=== PATIENT | female | born 1945 | race Caucasian/White ===

== ENCOUNTER 2019-04-09 13:26 | Outpatient (CLI) | payer MEDICARE, SELFPAY ==
[2019-04-09 17:23] LABS: Basophils Absolute Auto 0.1 K/mm3 (0.0-0.1); Basophils Percent Auto 0.8 % (0.2-1.2); Eosinophils Absolute Auto 0.6 K/mm3 (0-0.3); Eosinophils Percent Auto 4.8 % (0-4.4); Hematocrit 47.7 % (37.0-47.0); Hemoglobin 14.8 g/dL (12.0-15.0); Immature Granulocyte Absolute 0.05 K/mm3 (0.00-0.031); Immature Granulocyte Percent A 0.4 % (0-0.5); Lymphocytes Absolute Auto 3.46 K/mm3 (0.9-3.2); Lymphocytes Percent Auto 29.8 % (18.3-44.2); Mean Corpuscular Hemoglobin 29.5 pg (26-34); Mean Platelet Volume 12.2 fl (7.4-10.4); Monocytes Absolute Auto 0.8 K/mm3 (0.1-0.6); Monocytes Percent Auto 7.1 % (2.6-8.5); Neutrophils Absolute Auto 6.6 K/mm3 (1.3-6.7); Neutrophils Percent Auto 57.1 % (45.5-73.1); Platelet Count Result 304 k/mm3 (150-375); Red Blood Count 5.02 M/mm3 (4.2-5.4); Red Cell Distribution Width 15.3 % (11.5-14.5); White Blood Count 11.6 K/mm3 (4.5-10.0)
[2019-04-09 17:27] LABS: Add Urine Microscopic? YES; Appearance Urine Clear (Clear); Bilirubin Urine Negative (Negative); Blood Urine 1+ (Negative); Color Urine Yellow (Yellow); Glucose Urine UA Negative (Negative); Ketones Urine Negative (Negative); Leukocyte Esterase Ur Negative LEU/UL (Negative); Mucus Urine Rare /lpf; Nitrate Urine Negative (Negative); Protein Urine Negative (Negative); RBC Urine 0-2 /hpf (0-2); Specific Grav Ur 1.012 (1.001-1.035); Squamous Epithelial Cell Urine Rare /hpf (Few); Urobilinogen Urine Negative mg/dL (<2.0); WBC Urine 0-3 /hpf
[2019-04-09 17:43] LABS: LDL Cholesterol Direct 250 mg/dL
[2019-04-09 17:51] LABS: Vitamin D 25 Hydroxy 17.5 ng/mL
[2019-04-09 18:06] LABS: Alanine Aminotransferase 21 U/L (4-35); Albumin Level 4.6 g/dL (3.5-5.1); Alkaline Phosphatase 178 U/L (38-126); Aspartate Amino Transferase 23 U/L (14-36); Bilirubin,Total 0.5 mg/dL (0.2-1.3); Blood Urea Nitrogen 9 mg/dL (7-17); CRP 1.3 mg/dL (<1.0); Calcium 10.1 mg/dL (8.4-10.2); Carbon Dioxide 23 mmol/L (22-30); Chloride 102 mmol/L (98-107); Estimated Glomerular Filt Rate 49; Glucose 107 mg/dL (65-105); HDL Direct 62 mg/dL; Potassium 4.2 mmol/L (3.4-5.0); Sodium 140 mmol/L (137-145); Triglycerides 187 mg/dL (<150)
[2019-04-09 18:24] LABS: Cholesterol 339 mg/dL (0-200)
[2019-04-09 18:37] LABS: Folic Acid 7.4 ng/mL (2.76->20)
[2019-04-12 19:54] LABS: C-Peptide 2.24 ng/mL (0.80-3.85)
== END 2019-04-09 13:27 | disposition home or self-care (01) ==
LOC: ANHBWCIMG 13:28
PROVIDERS: PCP Family Medicine; Visit Provider Family Medicine
DX: E53.8 Deficiency of other specified B group vitamins (principal); E78.2 Mixed hyperlipidemia; Z72.0 Tobacco use; Z78.0 Asymptomatic menopausal state; Z79.899 Other long term (current) drug therapy
CPT/HCPCS: 36415; 80053; 80061; 81001; 82306; 82607; 82746; 84443; 84681; 85025; 86140

== ENCOUNTER → 2020-07-11 09:21 | Outpatient (CLI) | payer MEDICARE, SELFPAY ==
--- NOTE | ~2020-07-11 | CT_ITS ---
EXAMINATION: CT sinus wo con DATE: 07/11/2020 09:45 INDICATION: Chronic sinusitis. Dysfunction of eustachian tube. TECHNIQUE: Computed tomography (CT) of the paranasal sinuses was performed without intravenous contra st. Automated exposure control and iterative reconstruction technique were employed. The dose-length product was 258.77 mGy-cm. COMPARISON: None FINDINGS: The frontal and sphenoid sinuses are clear. There is mild mucosal thickening in the left an terior ethmoid sinuses and bilateral maxillary sinuses. The nasal septum is at midline. There is conc flower bullosa involving the right middle turbinate. Left middle turbinate is paradoxical. The ostiomeata l units are patent. There are likely changes of ocular lens replacement surgeries. The nasopharynx is unremarkable. There is a small right mastoid effusion. IMPRESSION: 1. Mild mucosal thickening in the paranasal sinuses. 2. Small right mastoid effusion. Reviewed, dictated and finalized at location A.
== END ==
PROVIDERS: Visit Provider Family Medicine
DX: H69.80 Other specified disorders of Eustachian tube, unspecified ear (principal)
CPT/HCPCS: 70486

== ENCOUNTER 2020-07-15 12:45 | Outpatient (CLI) | payer MEDICARE, SELFPAY ==
--- NOTE | ~2020-07-15 | CT_ITS ---
EXAMINATION: CT diagnostic chest wo con EXAM DATE: 07/15/2020 13:31 INDICATION: Chronic cough, SOB, nicotine dependence. TECHNIQUE: Spiral CT of the chest without contrast. Axial, coronal and sagittal images of the chest were reviewed. Coronal maximum intensity pixel images of chest reviewed. The dose-length product ( DLP) for this examination was 142.75 mGy-cm. The exposure was tailored according to patient size (au to mA exposure control), and iterative reconstruction (ASIR) was used as additional dose reduction te chnique. Comparison is made to prior examination from 04/11/2018. 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 Moderate emphysema and mild hyperinflation. Mild bronchiectasis. There are no pleural or pericardial effusions. Tracheobronchial tree is patent. There is no mediastinal, hilar or axillary lymphadeno esteban. There is no pneumothorax. Heart normal in size. There is moderate coronary arterial calc ification, arterial sclerosis. Upper abdomen is unremarkable. There is thoracic spondylosis withou t osteoblastic or osteolytic lesions identified. IMPRESSION: 1. Moderate amount of NSIP interstitial lung disease unchanged. 2. Moderate emphysema. Mild hyperinflation. 3. No acute findings. Reviewed, dictated and finalized at location A.
--- NOTE | ~2020-07-15 | US_ITS ---
EXAMINATION: US carotid duplex BI DATE: 07/15/2020 13:22 INDICATION: Peripheral vascular disease. Palpitations. TECHNIQUE: Grayscale, color Doppler, and pulsed Doppler images of the cervical carotid arteries were obtained. The degree of vessel stenosis is placed in one of the following categories: normal, <50%, 5 0-69%, >=70% but less than near-occlusion, near-occlusion, or total occlusion. Note that percent sten osis relative to normal distal artery lumen diameter is indirectly measured from velocity measurement s as described by Anjum, et al. Radiology 2003; 229:340-346. Notes: Normal: Peak systolic velocity <125 centimeters/sec and no plaque <50%. Peak systolic velocity <125 ( EDV <40; ICA/CCA PSV ratio <2.0; used these factors only a tandem lesions or low cardiac output or co ntralateral disease) 50-69 %: PSV 125-230 (EDV 40-100; ratio 2-4) >= 70% but less than near occlusion: PSV greater than 230 (EDV > 100; ratio> 4.0) Near Occlusion: PSV that is variable; markedly narrowed lumen Occlusion: Absent flow on color/spectral Doppler and no lumen on conklin scale. COMPARISON: None. FINDINGS: RIGHT: The right common carotid artery (CCA) peak systolic velocity (PSV) is 77 cm/s. The right internal car otid artery (ICA) PSV is 83 cm/s. The right ICA end-diastolic velocity (EDV) is 21 cm/s. The right IC A/CCA PSV ratio is 1.1. The external carotid artery (ECA) PSV is 76 cm/s. There is antegrade flow in the right vertebral artery. LEFT: The left CCA PSV is 73 cm/s. The left ICA PSV is 94 cm/s. The left ICA EDV is 22 cm/s. The left ICA/C CA PSV ratio is 1.3. The ECA PSV is 98 cm/s. There is antegrade flow in the left vertebral artery. IMPRESSION: 1. Less than 50% stenosis in the right internal carotid artery by sonographic criteria. 2. Less than 50% stenosis in the left internal carotid artery by sonographic criteria. Reviewed, dictated and finalized at location B. IMPRESSION: 1. Less than 50% stenosis in the right internal carotid artery by sonographic c riteria. 2. Less than 50% stenosis in the left internal carotid artery by sonographic cr elaineia.
== END 2020-07-15 12:46 | disposition home or self-care (01) ==
LOC: ANHIMG 12:48
PROVIDERS: PCP Family Medicine; Visit Provider Family Medicine
DX: H69.80 Other specified disorders of Eustachian tube, unspecified ear (principal); Z91.89 Other specified personal risk factors, not elsewhere classified; F17.200 Nicotine dependence, unspecified, uncomplicated; J32.9 Chronic sinusitis, unspecified; J43.9 Emphysema, unspecified; I65.23 Occlusion and stenosis of bilateral carotid arteries
CPT/HCPCS: 71250; 93880

== ENCOUNTER 2020-07-17 10:47 | Outpatient (CLI) | payer MEDICARE, SELFPAY | END 2020-07-17 10:48 | disposition home or self-care (01) | PROVIDERS: PCP Family Medicine; Visit Provider Family Medicine | DX: H69.80 Other specified disorders of Eustachian tube, unspecified ear (principal); R42 Dizziness and giddiness | CPT/HCPCS: 92557; 92567 ==

== ENCOUNTER 2020-09-09 14:14 | Outpatient (CLI) | payer MEDICARE, SELFPAY ==
--- NOTE | ~2020-09-09 | MR_ITS ---
EXAMINATION: MR lumbar spine wo/w con DATE: 09/09/2020 15:43 INDICATION: Low back pain. Left leg pain. TECHNIQUE: Magnetic resonance imaging (MRI) of the lumbar spine was performed without and with 10 mL MultiHance intravenous contrast. Sequences included sagittal T2-weighted FSE, sagittal T2-weighted FS FSE, and sagittal and axial T1-weighted FSE. Postcontrast sequences included axial T2-weighted FSE a nd axial and sagittal T1-weighted FS FSE. COMPARISON: None FINDINGS: There is 3 mm anterolisthesis of L4 on L5. Vertebral body heights are normal. There is mild ly decreased disc height at L2-L3, L4-L5, and L5-S1. The distal spinal cord signal intensity is goldie l. The conus medullaris is at L1. The following disc levels are specifically discussed: L1-L2: The disc does not extend beyond the endplate margin. There is no facet joint osteoarthritis. T here is no neural foraminal stenosis. There is no central canal stenosis. L2-L3: The disc is bulging with superimposed right foraminal extrusion. There is mild bilateral facet joint osteoarthritis. There is mild bilateral neural foraminal stenosis. There is mild central canal stenosis. L3-L4: The disc is bulging and has an annular fissure. There is severe right and moderate left facet joint osteoarthritis. There is mild bilateral neural foraminal stenosis. There is mild central canal stenosis. L4-L5: The disc is bulging. There is severe bilateral facet joint osteoarthritis. There is mild later al neural foraminal stenosis. There is mild central canal stenosis. L5-S1: There is a left central extrusion with mass effect on left S1 nerve root in left lateral reces s. There is severe bilateral facet joint osteoarthritis. There is mild bilateral neural foraminal gino nosis. There is mild central canal stenosis. There is severe stenosis in left lateral recess. IMPRESSION: 1. Extrusion at L5-S1 with mass effect on left S1 nerve root. Otherwise mild lumbar spondylosis. Reviewed, dictated and finalized at location A. IMPRESSION: 1. Extrusion at L5-S1 with mass effect on left S1 nerve root. Otherwise mild jaspreet mbar spondylosis.
[2020-09-09 15:14] LABS: Estimated Glomerular Filt Rate 49
== END 2020-09-09 14:15 | disposition home or self-care (01) ==
LOC: ANHIMG 14:15
PROVIDERS: PCP Family Medicine; Visit Provider Family Medicine
DX: M54.16 Radiculopathy, lumbar region (principal); M47.816 Spondylosis without myelopathy or radiculopathy, lumbar region; M51.27 Other intervertebral disc displacement, lumbosacral region
CPT/HCPCS: 72158; A9577

== ENCOUNTER 2020-10-06 10:40 | Outpatient (CLI) | payer MEDICARE, SELFPAY ==
[2020-10-06 21:37] LABS: Hemoglobin A1C 5.5 % (<5.7)
== END 2020-10-06 10:41 | disposition home or self-care (01) ==
PROVIDERS: PCP Family Medicine; Visit Provider Family Medicine
DX: R73.09 Other abnormal glucose (principal); R79.89 Other specified abnormal findings of blood chemistry
CPT/HCPCS: 36415; 83036

== ENCOUNTER 2020-10-22 14:44 | Outpatient (CLI) | payer MEDICARE, SELFPAY ==
--- NOTE | ~2020-10-22 | XR_ITS ---
XR hip LT min 2V DATE: 10/22/2020 14:59 INDICATION: Fall one year ago. Worsening left hip pain. TECHNIQUE: AP, lateral views COMPARISON: None FINDINGS: No fracture, dislocation, avascular necrosis or bone destruction is detected. Mild left hip osteoarthritis. Calcified uterine fibroid. Common iliac and femoral artery calcifications. IMPRESSION: Mild left hip osteoarthritis Reviewed, dictated and finalized at location A.
== END 2020-10-22 14:45 | disposition home or self-care (01) ==
LOC: ANHBWCIMG 14:46
PROVIDERS: PCP Family Medicine; Visit Provider Family Medicine
DX: M17.12 Unilateral primary osteoarthritis, left knee (principal)
CPT/HCPCS: 73502

== ENCOUNTER → 2021-02-13 03:30 | Outpatient (CLI) | payer MEDICARE, SELFPAY ==
[2021-02-13 22:11] LABS: SARS-CoV-2 RNA PCR Negative
== END ==
PROVIDERS: PCP Family Medicine; Visit Provider Family Medicine
DX: J06.9 Acute upper respiratory infection, unspecified (principal); Z20.822 Contact with and (suspected) exposure to COVID-19
CPT/HCPCS: C9803; U0003; U0005

== ENCOUNTER 2021-04-08 11:16 | Outpatient (CLI) | payer MEDICARE, SELFPAY ==
[2021-04-08 18:55] LABS: Hematocrit 49.3 % (37.0-47.0); Hemoglobin 15.1 g/dL (12.0-15.0); Mean Corpuscular HGB Conc 30.6 g/dl (32-36); Mean Corpuscular Hemoglobin 29.5 pg (26-34); Mean Corpuscular Volume 96.5 fl (80-100); Mean Platelet Volume 12.1 fl (7.4-10.4); Platelet Count Result 285 k/mm3 (150-375); Red Blood Count 5.11 M/mm3 (4.2-5.4); Red Cell Distribution Width 14.7 % (11.5-14.5); White Blood Count 8.8 K/mm3 (4.5-10.0)
[2021-04-08 19:01] LABS: Alanine Aminotransferase 16 U/L (4-35); Albumin Level 4.7 g/dL (3.5-5.1); Alkaline Phosphatase 138 U/L (38-126); Anion Gap 11 mmol/L (8-16); Aspartate Amino Transferase 23 U/L (14-36); Bilirubin,Total 0.6 mg/dL (0.2-1.3); Blood Urea Nitrogen 12 mg/dL (7-17); Calcium 10.7 mg/dL (8.4-10.2); Carbon Dioxide 25 mmol/L (22-30); Chloride 103 mmol/L (98-107); Cholesterol 239 mg/dL (0-200); Estimated Glomerular Filt Rate 49; Glucose 117 mg/dL (65-110); HDL Direct 71 mg/dL; Potassium 4.6 mmol/L (3.4-5.0); Sodium 139 mmol/L (137-145); Triglycerides 155 mg/dL (<150)
[2021-04-08 19:12] LABS: LDL Cholesterol Direct 132 mg/dL
[2021-04-08 19:22] LABS: Vitamin D 25 Hydroxy 49.6 ng/mL
== END 2021-04-08 11:17 | disposition home or self-care (01) ==
PROVIDERS: PCP Family Medicine; Visit Provider Family Medicine
DX: R53.83 Other fatigue (principal); M54.16 Radiculopathy, lumbar region; E55.9 Vitamin D deficiency, unspecified; R79.89 Other specified abnormal findings of blood chemistry
CPT/HCPCS: 36415; 80053; 80061; 82306; 85027

== ENCOUNTER 2021-04-28 14:52 | Outpatient (CLI) | payer MEDICARE, SELFPAY ==
--- NOTE | ~2021-04-28 | CT_ITS ---
EXAMINATION: CT chest high resolution wo ma DATE: 04/28/2021 15:03 INDICATION: Nonspecific interstitial pneumonitis TECHNIQUE: Computed tomography (CT) of the chest was performed without intravenous contrast. The dose -length product was 127.79 mGy-cm. Automated exposure control and iterative reconstruction technique were employed. COMPARISON: CT dated 07/15/2020 FINDINGS: There is mild atherosclerosis of the aorta and coronary arteries. No evidence for aneurysm. There is precarinal lymphadenopathy measuring 11 mm, likely reactive no significant pleural or peric ardial effusion. The upper abdomen is unremarkable. There is emphysema. There are stable coarse inter stitial changes bilaterally with subpleural bands and interlobular septal thickening, consistent with chronic interstitial lung disease no endobronchial lesions. There is a stable 5 mm nodule right midd le lobe, likely benign. No new pulmonary nodules or masses. There is mild thoracic spondylosis. IMPRESSION: 1. Stable 5 mm right middle lobe nodule, likely benign. Follow-up low dose CT chest in 12 months boone mmended. 2: Emphysema superimposed on background of chronic interstitial lung disease. No significant interval change. Reviewed, dictated and finalized at location A. IMPRESSION: 1. Stable 5 mm right middle lobe nodule, likely benign. Follow-up low dose CT c hest in 12 months recommended. 2: Emphysema superimposed on background of chronic interstitial lung disease. N o significant interval change.
== END 2021-04-28 14:53 | disposition home or self-care (01) ==
LOC: ANHIMG 14:53
PROVIDERS: PCP Family Medicine; Visit Provider Family Medicine
DX: R06.2 Wheezing (principal); R91.1 Solitary pulmonary nodule; J84.89 Other specified interstitial pulmonary diseases; J43.9 Emphysema, unspecified; F17.200 Nicotine dependence, unspecified, uncomplicated
CPT/HCPCS: 71250

== ENCOUNTER 2021-04-30 09:39 | Outpatient (CLI) | payer MEDICARE, SELFPAY ==
[2021-04-30 18:59] LABS: Hemoglobin A1C 5.1 % (<5.7)
[2021-05-03 04:21] LABS: Ionized Calcium 5.6 mg/dL (4.8-5.6)
== END 2021-04-30 09:40 | disposition home or self-care (01) ==
PROVIDERS: PCP Family Medicine; Visit Provider Family Medicine
DX: R73.09 Other abnormal glucose (principal); E83.52 Hypercalcemia
CPT/HCPCS: 36415; 82330; 83036

== ENCOUNTER 2021-09-08 12:06 | Outpatient (CLI) | payer MEDICARE, SELFPAY ==
--- NOTE | 2021-09-08 16:16 | WPDSIXMINUTE ---
Six Minute Walk Procedure Procedure Performed Pulmonary Stress Test (6 min walk) Six Minute Walk Six Minute Walk: This is a 6 minute walk test. The test was performed and interpreted in accordance with the 2014 ERS/ATS task force guidelines. Findings: The patient's resting room air oxygen saturation measured by pulse oximetry was 97% and heart rate was 78 bpm. Patient ambulated for 259 meters and oxygen saturation remained 93 to 98%. Heart rate at the end of the study was 122 bpm. The patient did not qualify for supplemental oxygen at rest or with ambulation. There are no prior studies for comparison.
--- NOTE | 2021-09-08 16:17 | WPDPFTINT ---
PFT Procedure Performed PFT Procedure Performed Spirometry with Pre/Post Bronchodilator Plethysmography (Lung Vol) Diffusing Cap (DLCO) Flow Vol Loop PFT Interpretation This is a pulmonary function test with pre and post-bronchodilator spirometry, plethysmography and diffusing capacity. The test was performed and results interpreted in accordance with the 2019 and 2005 ATS/ERS Task Force guidelines respectively using the Global Lung Function Initiative-2012 reference equations. Patient demonstrated good effort and cooperation. Reproducibility criteria were met. The quality of the pre bronchodilator spirometry maneuver was Grade B and post bronchodilator spirometry maneuver was Grade A. Findings: Spirometry: The expiratory flow tracing demonstrates a mild mid expiratory plateau in airflow creating a mild convex inflection referred to as the knee pattern in 1 of the 2 pre bronchodilator efforts and 2 of the 3 post bronchodilator efforts. The pattern is more pronounced in the post bronchodilator efforts. The contour of the inspiratory flow tracing is normal. The pre bronchodilator FVC is 2.26 L, 85% predicted. The pre bronchodilator FEV1 is 1.61 L, 78% predicted. The pre bronchodilator FEV1: FVC ratio 71%. The post bronchodilator FVC is 2.33 L, representing a 3% increase. The post bronchodilator FEV1 is 1.83 L, representing a 14% increase. The post bronchodilator FEV1: FVC ratio 78%. Plethysmography: The total lung capacity is 3.30 L, 67% predicted. The functional residual capacity is 1.98 L, 71% predicted. The residual volume is 0.77 L, 35% predicted. Diffusion capacity: The diffusing capacity unadjusted for hemoglobin and carboxyhemoglobin is 9.7, 49% predicted. The diffusing capacity adjusted for alveolar volume is 3.42, 80% predicted. In comparison to the most recent pulmonary function test on In comparison to the prior pulmonary function test on 04/11/2018 the pre bronchodilator expiratory flow tracing demonstrates a knee pattern. The post bronchodilator FVC is unchanged from 2.21 L to 2.33 L. The post bronchodilator FEV1 is increased from 1.47 L to 1.83 L. The total lung capacity is unchanged from 3.70 L to 3.30 L. The functional residual capacity is decreased from 2.52 L to 1.98 L. The residual volume is decreased from 1.55 L to 0.77 L. The diffusing capacity unadjusted for hemoglobin and carboxyhemoglobin is unchanged from 9.6 to 9.7. The diffusing capacity adjusted for alveolar volume is unchanged from 3.72 to 3.42. Impression: The expiratory flow tracing demonstrates a reproducible mid expiratory plateau in airflow creating a convex inflection referred to as the knee pattern in 1 of 2 pre bronchodilator and was more pronounced in 2 of 3 post bronchodilator efforts. This pattern can be a normal variant or pathologic and has been attributed to a choke point section of the bronchial tree. The normal variant is more common in younger female patients, decreases with age and is more pronounced in the post bronchodilator efforts. The pattern has also been described with kyphosis, kyphoscoliosis, central obstructing masses, and post lung transplantation. Clinical correlation is recommended. There is a mild restrictive ventilatory abnormality with a normal FEV1. The spirometry is normal without evidence of an obstructive abnormality. There is significant improvement after inhaling a single dose of albuterol. The diffusing capacity unadjusted for hemoglobin and carboxyhemoglobin is moderately decreased and normalizes when adjusted for alveolar volume. In comparison to the prior pulmonary function test on 04/11/2018 the knee pattern was present. There has been a greater than anticipated time dependent increase in the FEV1 and a greater than anticipated time dependent decrease in the functional residual capacity and residual volume with no change in the FVC, total lung capacity or diffusing capacity. Clinical correlation is recommen
== END 2021-09-08 12:07 | disposition home or self-care (01) ==
PROVIDERS: PCP Family Medicine; Visit Provider Internal Medicine Pulmonary Disease
DX: R06.00 Dyspnea, unspecified (principal); J40 Bronchitis, not specified as acute or chronic; Z72.0 Tobacco use; R94.2 Abnormal results of pulmonary function studies
CPT/HCPCS: 94060; 94618; 94726; 94729

== ENCOUNTER 2021-12-17 14:15 | Outpatient (CLI) | payer MEDICARE, SELFPAY ==
[2021-12-17 19:31] LABS: Alanine Aminotransferase 32 U/L (6-35); Albumin Level 4.9 g/dL (3.5-5.1); Alkaline Phosphatase 143 U/L (38-126); Anion Gap 12 mmol/L (8-16); Aspartate Amino Transferase 58 U/L (14-36); Bilirubin,Total 0.7 mg/dL (0.2-1.3); Blood Urea Nitrogen 11 mg/dL (7-17); Calcium 10.5 mg/dL (8.4-10.2); Carbon Dioxide 23 mmol/L (22-30); Chloride 105 mmol/L (98-107); Estimated Glomerular Filt Rate > 60; Glucose 102 mg/dL (65-110); Sodium 140 mmol/L (137-145)
[2021-12-17 19:38] LABS: Basophils Absolute Auto 0.1 K/mm3 (0.0-0.1); Basophils Percent Auto 0.6 % (0.2-1.2); Eosinophils Absolute Auto 0.6 K/mm3 (0-0.3); Eosinophils Percent Auto 4.9 % (0-4.4); Hematocrit 47.4 % (37.0-47.0); Hemoglobin 15.3 g/dL (12.0-15.0); Immature Granulocyte Absolute 0.03 K/mm3 (0.00-0.031); Immature Granulocyte Percent A 0.3 % (0-0.5); Lymphocytes Absolute Auto 3.12 K/mm3 (0.9-3.2); Lymphocytes Percent Auto 27.7 % (18.3-44.2); Mean Corpuscular HGB Conc 32.3 g/dl (32-36); Mean Corpuscular Hemoglobin 29.6 pg (26-34); Mean Corpuscular Volume 91.7 fl (80-100); Mean Platelet Volume 12.1 fl (7.4-10.4); Monocytes Absolute Auto 0.8 K/mm3 (0.1-0.6); Monocytes Percent Auto 6.7 % (2.6-8.5); Neutrophils Absolute Auto 6.7 K/mm3 (1.3-6.7); Neutrophils Percent Auto 59.8 % (45.5-73.1); Platelet Count Result 288 k/mm3 (150-375); Red Blood Count 5.17 M/mm3 (4.2-5.4); White Blood Count 11.3 K/mm3 (4.5-10.0)
== END 2021-12-17 14:16 | disposition home or self-care (01) ==
PROVIDERS: PCP Family Medicine; Visit Provider Family Medicine
DX: D75.1 Secondary polycythemia (principal); E83.52 Hypercalcemia; J43.9 Emphysema, unspecified; J44.9 Chronic obstructive pulmonary disease, unspecified; J84.9 Interstitial pulmonary disease, unspecified; M54.16 Radiculopathy, lumbar region; R91.1 Solitary pulmonary nodule
CPT/HCPCS: 36415; 80053; 85025

== ENCOUNTER 2022-01-06 01:20 | Day surgery (SDC) | payer MEDICARE, SELFPAY ==
[2021-12-25 10:08] VITALS: BMI 21.4
--- NOTE | 2022-01-05 13:36 | PM.HPGS ---
History of Present Illness History of Present Illness Consent: Risks, benefits, and alternatives have been discussed and questions answered. Patient agrees to proceed with procedure. Chief complaint: hx of colon polyps Narrative: Anay Summers is a 76 year old female who was referred for colon cancer screening. Her last colonoscopy was about 5 years ago. Previously, she had an adenomatous polyp removed. Review of Systems Review of Systems: All systems reviewed & are unremarkable except as noted in HPI and below PMFSH Past Medical History Medical History COPD (chronic obstructive pulmonary disease) Emphysema lung Interstitial lung disease Mixed hyperlipidemia Tobacco abuse Vitamin D deficiency Wheezing Family History Family History Mother Family history of cardiovascular disease Family history of malignant neoplasm, Onset Age: 83 Father Cerebrovascular accident, Onset Age: 57 Patient's father is , Onset Age: 57 Sibling Patient's sister is in good health Patient's brother is in good health Family history of lung cancer Social History Social History Smoking packs per day: 1 Smoking cigarettes per day: 20.0 Years smoked: 50 Smoking pack-years: 50.00 Smoking status: Current every day smoker Tobacco type: cigarettes Second hand tobacco smoke exposure: Yes Alcohol intake: current Drinks per week: 10 Alcohol use details: red wine Substance use: never Substance use type: does not use Living arrangements: alone Spiritual care concerns: No Meds Home Medications and Allergies Home Medications Medication Instructions Recorded Confirmed Type cyanocobalamin (vitamin B-12) 1,000 mcg PO DAILY 07/04/20 01/06/22 History 1,000 mcg capsule albuterol sulfate 90 mcg/actuation 1 inh inhalation Q4H PRN shortness 04/08/21 01/06/22 Rx aerosol inhaler of breath or wheezing #8.5 grams ergocalciferol (vitamin D2) 1,250 1,250 mcg PO MONTHLY #14 caps 05/05/21 01/06/22 Rx mcg (50,000 unit) capsule tiotropium bromide 2.5 2 inh inhalation DAILY #4 grams 07/22/21 01/06/22 Rx mcg/actuation mist for inhalation ezetimibe 10 mg-simvastatin 20 mg 1 tablet PO QPM #90 tabs 12/22/21 01/06/22 Rx tablet (Vytorin) azelastine 137 mcg (0.1 %) nasal 1 spray intranasal Q12H PRN 12/25/21 01/06/22 History spray aerosol Allergy Symptoms Allergies Allergy/AdvReac Type Severity Reaction Status Date / Time No Known Allergies Allergy Unknown Verified 01/06/22 08:16 Exam Const: General: alert Orientation/consciousness: patient oriented x3 Resp: Auscultation: clear to auscultation bilaterally Cardio: Rhythm: regular rhythm GI: GI Palp: Yes Soft to palpation and No Tenderness to palpation present (GI) Neuro: General: patient oriented x3 Assessment and Plan Assessment and plan (1) Colon cancer screening: Code(s): Z12.11 - Encounter for screening for malignant neoplasm of colon Status: Acute Assessment and Plan: Colonoscopy with possible biopsy or polypectomy or cautery or injection of substances.
[2022-01-06 08:17] VITALS: BP 130/75; PULSE 91; RESP 16; TEMP 36.2; O2SAT 98
[2022-01-06] MEDS: LACTATED RINGERS 1,000 ML 150 ML IV CONT (08:20)
--- NOTE | 2022-01-06 08:25 | WPDANESEPPF ---
Anes - Initial Pre Proc Eval Procedure: Operation Date: 01/06/22 09:30 Proposed Procedures p Screening Colonoscopy - Joe Aj MD Date/Time: 01/06/22 08:25 Surgeon: Joe Aj MD Pre Op Diagnosis: hx of colon polyps Patient Data Age: 76 Gender: F Height: 1.6 m Weight: 54.1 kg Last Vital Signs Temp 36.2 C L 01/06/22 08:17 Pulse 91 01/06/22 08:17 Resp 16 01/06/22 08:17 BP 130/75 01/06/22 08:17 Pulse Ox 98 01/06/22 08:17 O2 Del Method Room Air 01/06/22 08:17 Allergies Allergy/AdvReac Type Severity Reaction Status Date / Time No Known Allergies Allergy Unknown Verified 01/06/22 08:16 Home Medications Medication Instructions Recorded Confirmed Type cyanocobalamin (vitamin B-12) 1,000 mcg PO DAILY 07/04/20 01/06/22 History 1,000 mcg capsule albuterol sulfate 90 mcg/actuation 1 inh inhalation Q4H PRN shortness 04/08/21 01/06/22 Rx aerosol inhaler of breath or wheezing #8.5 grams ergocalciferol (vitamin D2) 1,250 1,250 mcg PO MONTHLY #14 caps 05/05/21 01/06/22 Rx mcg (50,000 unit) capsule tiotropium bromide 2.5 2 inh inhalation DAILY #4 grams 07/22/21 01/06/22 Rx mcg/actuation mist for inhalation ezetimibe 10 mg-simvastatin 20 mg 1 tablet PO QPM #90 tabs 12/22/21 01/06/22 Rx tablet (Vytorin) azelastine 137 mcg (0.1 %) nasal 1 spray intranasal Q12H PRN 12/25/21 01/06/22 History spray aerosol Allergy Symptoms Patient hx anesthesia problems: none Family hx anesthesia problems: none Results Review: All pre-operative results and documents have been reviewed as part of the pre-operative evaluation. [facility] Past Medical History Medical History (Updated 01/06/22 @ 08:26 by Carmelo Vazquez MD) COPD (chronic obstructive pulmonary disease) Emphysema lung Interstitial lung disease Mixed hyperlipidemia Tobacco abuse Vitamin D deficiency Wheezing Family History Family History Mother Family history of cardiovascular disease Family history of malignant neoplasm, Onset Age: 83 Father Cerebrovascular accident, Onset Age: 57 Patient's father is , Onset Age: 57 Sibling Patient's sister is in good health Patient's brother is in good health Family history of lung cancer Social History Social History Smoking packs per day: 1 Smoking cigarettes per day: 20.0 Years smoked: 50 Smoking pack-years: 50.00 Smoking status: Current every day smoker Tobacco type: cigarettes Second hand tobacco smoke exposure: Yes Alcohol intake: current Drinks per week: 10 Alcohol use details: red wine Substance use: never Substance use type: does not use Living arrangements: alone Spiritual care concerns: No Anes - Eval Final PreProcedure Day of Procedure 01/06/22 08:25 Patient weight: normal Heart: regular rate and rhythm Lungs: clear to auscultation and normal air movement Airway: Mallampati scale class II Neurological: alert and oriented Last oral intake: >/= 8 hours ASA classification: III Emergent: no Anesthetic plan: proceed Anesthesia type and monitoring: general GIVS Results Review: All pre-operative results and documents have been reviewed as part of the pre-operative evaluation. Informed Consent: The patient's anesthetic plan and its attendant risks and benefits were discussed with the patient/family/POA. Questions were solicited and answers provided to the satisfaction of the patient/family/POA.
[2022-01-06 09:55] VITALS: BP 154/84; PULSE 94; RESP 29; O2SAT 99
[2022-01-06 10:05] VITALS: BP 168/99; PULSE 88; RESP 25; O2SAT 99
[2022-01-06 10:15] VITALS: BP 169/96; PULSE 89; RESP 23; O2SAT 99
== END 2022-01-06 10:20 | disposition home or self-care (01) ==
PROVIDERS: PCP Family Medicine; Visit Provider Internal Medicine Gastroenterology
PROC: 0DJD8ZZ Inspection of Lower Intestinal Tract, Via Natural or Artificial Opening Endoscopic (ICD-10-PCS; CPT 45378; principal; 2022-01-06 09:30)
DX: Z12.11 Encounter for screening for malignant neoplasm of colon (principal); K64.8 Other hemorrhoids; D12.5 Benign neoplasm of sigmoid colon; J43.9 Emphysema, unspecified; E78.2 Mixed hyperlipidemia; E55.9 Vitamin D deficiency, unspecified; F17.210 Nicotine dependence, cigarettes, uncomplicated; Z79.51 Long term (current) use of inhaled steroids
CPT/HCPCS: 45385; 88305; J2704; J7120

== ENCOUNTER 2022-12-20 14:49 | Outpatient (CLI) | payer MEDICARE, SELFPAY ==
[2022-12-20 19:40] LABS: Hematocrit 46.9 % (37.0-47.0); Hemoglobin 14.6 g/dL (12.0-15.0); Mean Corpuscular HGB Conc 31.1 g/dl (32-36); Mean Corpuscular Hemoglobin 29.4 pg (26-34); Mean Corpuscular Volume 94.4 fl (80-100); Mean Platelet Volume 11.9 fl (7.4-10.4); Platelet Count Result 323 k/mm3 (150-375); Red Blood Count 4.97 M/mm3 (4.2-5.4); Red Cell Distribution Width 14.5 % (11.5-14.5); White Blood Count 12.1 K/mm3 (4.5-10.0)
[2022-12-20 19:44] LABS: LDL Cholesterol Direct 118 mg/dL
[2022-12-20 20:29] LABS: Alanine Aminotransferase 23 U/L (6-35); Albumin Level 4.8 g/dL (3.5-5.1); Alkaline Phosphatase 154 U/L (38-126); Anion Gap 11 mmol/L (8-16); Aspartate Amino Transferase 28 U/L (14-36); Bilirubin,Total 0.8 mg/dL (0.2-1.3); Blood Urea Nitrogen 11 mg/dL (7-17); Calcium 11.1 mg/dL (8.4-10.2); Carbon Dioxide 24 mmol/L (22-30); Chloride 104 mmol/L (98-107); Cholesterol 231 mg/dL (0-200); Estimated Glomerular Filt Rate 54; Glucose 108 mg/dL (65-110); HDL Direct 59 mg/dL; Potassium 4.2 mmol/L (3.4-5.0); Sodium 139 mmol/L (137-145); Triglycerides 151 mg/dL (<150)
== END 2022-12-20 14:50 | disposition home or self-care (01) ==
PROVIDERS: PCP Family Medicine; Visit Provider Family Medicine
DX: J43.9 Emphysema, unspecified (principal); J84.9 Interstitial pulmonary disease, unspecified; D75.1 Secondary polycythemia; E78.2 Mixed hyperlipidemia; E83.52 Hypercalcemia; R53.83 Other fatigue; Z72.0 Tobacco use
CPT/HCPCS: 36415; 80053; 80061; 85027

== ENCOUNTER 2023-01-03 19:54 | Inpatient (IN) | payer MEDICARE, SELFPAY ==
--- NOTE | ~2023-01-03 | CT_ITS ---
EXAMINATION: CT brain wo con DATE: 01/03/2023 21:48 INDICATION: Dizziness TECHNIQUE: Computed tomography (CT) of the head was performed without intravenous contrast. Sagittal and coronal reconstructions were performed. The mA was adjusted according to patient size. Iterative reconstruction technique was employed. The dose-length product was 605.33 mGy-cm. COMPARISON: Sinus CT dated 07/11/2020 FINDINGS: No acute intracranial hemorrhage, acute infarction or abnormal extra axial fluid collection. There is a moderate to large amount of scattered white matter hypoattenuation consistent with chronic small v essel ischemic disease. Ventricles are normal and symmetric. No mass/mass effect. Changes of bilatera l intraocular lens replacement. Intracranial calcified cerebral atherosclerosis is noted. The orbits, paranasal sinuses and left mastoid air cells are normal. Chronic small right mastoid effusion. There is a high riding right jugular bulb. IMPRESSION: 1. No acute intracranial process. 2. Moderate to large amount of scattered white matter hypoattenuation consistent with chronic small v essel ischemic disease. 3. Chronic small right mastoid effusion. Reviewed, dictated and finalized at location A. CTOR OF FIRST IMPRESSIONS IMPRESSION: 1. No acute intracranial process. 2. Moderate to large amount of scattered white matter hypoattenuation consisten t with chronic small vessel ischemic disease. 3. Chronic small right mastoid effusion.
--- NOTE | ~2023-01-03 | XR_ITS ---
EXAMINATION: XR hip LT 2V w AP pelvis DATE: 01/03/2023 20:24 INDICATION: Left hip pain post fall TECHNIQUE: Anteroposterior view of the pelvis and anteroposterior and cross-table lateral views of th e left hip were obtained. COMPARISON: 10/22/2020 FINDINGS: Subcapital fracture of the proximal left femur with 6 mm anteromedial displacement of the main distal fragment. No other fractures identified. The femoral head remains normally centered in the left acet abulum without significant osteoarthritis. There is severe osteoarthritis at the right hip. 3.5 simil ar calcified mass in the pelvis likely degenerated uterine fibroid. Atherosclerotic calcific lesions at the infrarenal aorta and bilateral iliac arteries extending into the femoral arteries at the bilat eral inguinal regions. IMPRESSION: 1. 6 mm displacement of a subcapital fracture of the proximal left femur. 2. Severe right hip osteoarthritis. 3. Calcified uterine fibroid. Reviewed, dictated and finalized at location A. CTOR OF RECRUITMENT AND ADMISSIONS
--- NOTE | ~2023-01-03 | XR_ITS ---
EXAMINATION: XR surgery orthopedic DATE: 01/05/2023 14:48 INDICATION: Left femoral neck fracture. TECHNIQUE: 3 intraoperative fluoroscopic views of left hip were obtained. I was not present. Fluorosc opy exposure time was 50 seconds. COMPARISON: Left hip radiographs 01/03/2023 FINDINGS: There is a subcapital fracture of left femoral neck. The distal fracture fragment demonstra yulia impaction and valgus angulation. There is internal fixation with 2 lag screws. IMPRESSION: 1. Subcapital fracture of left femoral neck status post screw fixation. Reviewed, dictated and finalized at location A. [facility] ROOM WORKER
--- NOTE | ~2023-01-03 | XR_ITS ---
EXAMINATION: XR chest 1V DATE: 01/03/2023 20:24 INDICATION: Fall TECHNIQUE: frontal view of the chest was obtained. COMPARISON: Chest CT dated 04/28/2021 FINDINGS: Lung volumes are mildly decreased with chronic bilateral peripheral and basilar predominant subtle re ticular opacities consistent with chronic interstitial fibrosis with nonspecific interstitial pneumon ia (NSIP) pattern on the prior CT. No pleural effusion or pneumothorax. The cardiomediastinal silhoue tte is normal. Mild upper thoracic levocurvature. IMPRESSION: 1. Chronic interstitial lung disease with NSIP pattern on prior CT. No acute cardiopulmonary disease. Reviewed, dictated and finalized at location A. ER MANAGER IMPRESSION: 1. Chronic interstitial lung disease with NSIP pattern on prior CT. No acute ca rdiopulmonary disease.
[2023-01-03 19:55] VITALS: BP 156/92; PULSE 99; RESP 26; TEMP 36.6; O2SAT 95
[2023-01-03 20:49] LABS: Basophils Absolute Auto 0.1 K/mm3 (0.0-0.1); Basophils Percent Auto 0.5 % (0.2-1.2); Eosinophils Absolute Auto 0.8 K/mm3 (0-0.3); Eosinophils Percent Auto 5.6 % (0-4.4); Hematocrit 44.4 % (37.0-47.0); Hemoglobin 14.2 g/dL (12.0-15.0); Immature Granulocyte Absolute 0.11 K/mm3 (0.00-0.031); Immature Granulocyte Percent A 0.8 % (0-0.5); Lymphocytes Absolute Auto 2.55 K/mm3 (0.9-3.2); Lymphocytes Percent Auto 17.5 % (18.3-44.2); Mean Corpuscular Hemoglobin 29.3 pg (26-34); Mean Corpuscular Volume 91.7 fl (80-100); Mean Platelet Volume 10.5 fl (7.4-10.4); Monocytes Absolute Auto 0.8 K/mm3 (0.1-0.6); Monocytes Percent Auto 5.5 % (2.6-8.5); Neutrophils Absolute Auto 10.2 K/mm3 (1.3-6.7); Neutrophils Percent Auto 70.1 % (45.5-73.1); Platelet Count Result 285 k/mm3 (150-375); Red Blood Count 4.84 M/mm3 (4.2-5.4); Red Cell Distribution Width 14.2 % (11.5-14.5); White Blood Count 14.6 K/mm3 (4.5-10.0)
[2023-01-03 20:55] VITALS: BP 156/92; PULSE 104; RESP 19; O2SAT 96
[2023-01-03 20:57] LABS: Alanine Aminotransferase 26 U/L (6-35); Albumin Level 4.7 g/dL (3.5-5.1); Alkaline Phosphatase 152 U/L (38-126); Anion Gap 14 mmol/L (8-16); Aspartate Amino Transferase 31 U/L (14-36); Bilirubin,Total 0.5 mg/dL (0.2-1.3); Blood Urea Nitrogen 10 mg/dL (7-17); Calcium 10.6 mg/dL (8.4-10.2); Carbon Dioxide 19 mmol/L (22-30); Chloride 101 mmol/L (98-107); Estimated CRCL calculation 39 ml/min; Estimated Glomerular Filt Rate > 60; Glucose 105 mg/dL (65-110); Sodium 134 mmol/L (137-145)
--- NOTE | 2023-01-03 21:02 | PC.NURSE ---
Patient asked for pain medication and stated her pain was getting worse. EDP Sanna ROWLEY notified
[2023-01-03 21:03] LABS: Prothrombin Time 13.5 Seconds (11.1-14.7)
[2023-01-03 21:04] LABS: Partial Thromboplastin Time 21.1 SECONDS (22.3-36.8)
--- NOTE | 2023-01-03 21:21 | ECG_ITS ---
Measurements Intervals Reynolds Rate: 104 P: 52 NM: 159 QRS: 42 QRSD: 85 T: 61 QT: 336 QTc: 442 Interpretive Statements SINUS TACHYCARDIA ANTEROSEPTAL INFARCT, AGE INDETERMINATE BASELINE ARTIFACT- I, AVL, V3, V5-V6 ABNORMAL ECG NO PREVIOUS ECG AVAILABLE FOR COMPARISON Electronically Signed On 01-04-2023 6:36:28 PICK OUT HAND by Moise Calvillo D.O.
[2023-01-03] MEDS: ONDANSETRON INJ 4 MG/2 ML VIAL IV PUSH ×2 (22:01→22:44)
[2023-01-03] MEDS: MORPHINE SULFATE (*CRX) 4 MG/ML INJ 2 MG IV PUSH (22:02)
--- NOTE | 2023-01-03 22:28 | ED.GENADULT ---
HPI - General Adult General Chief complaint: Fall Stated complaint: LEFT HIP PAIN S/P GLF Time Seen by Provider: 01/03/23 21:14 History of Present Illness HPI narrative: patient's vital female presents emergency department chief complaint of left hip pain status post fall. The patient reports that she had a episode of dizziness fell landing on her left hip. The patient reports no head injury denies loss of consciousness but does report the 0 4th fall fairly recently. The patient reports that she has episodes of dizziness and then will lose her balance and fall. The patient denies syncope denies chest pain denies any other injuries. The patient reports that she has pain with moving her left lower extremity Related Data Home Medications Medication Instructions Recorded Confirmed cyanocobalamin (vitamin B-12) 1,000 mcg PO DAILY 07/04/20 06/21/22 1,000 mcg capsule azelastine 137 mcg (0.1 %) nasal 1 spray intranasal Q12H PRN 12/25/21 06/21/22 spray aerosol Allergy Symptoms Allergies Allergy/AdvReac Type Severity Reaction Status Date / Time No Known Allergies Allergy Unknown Verified 12/20/22 14:07 Review of Systems Review of Systems: A 10 system review of systems was completed on the patient and is negative except for what is stated in the HPI. Nursing and ancillary documentation was reviewed. [facility] Past Medical History Medical History COPD (chronic obstructive pulmonary disease) Emphysema lung Interstitial lung disease Mixed hyperlipidemia Tobacco abuse Vitamin D deficiency Wheezing Family History Family History Mother Family history of cardiovascular disease Family history of malignant neoplasm, Onset Age: 83 Father Cerebrovascular accident, Onset Age: 57 Patient's father is , Onset Age: 57 Sibling Patient's sister is in good health Patient's brother is in good health Family history of lung cancer Social History Social History Smoking packs per day: 1 Smoking cigarettes per day: 20.0 Years smoked: 50 Smoking pack-years: 50.00 Smoking status: Current every day smoker Tobacco type: cigarettes Second hand tobacco smoke exposure: Yes Alcohol intake: current Drinks per week: 10 Alcohol use details: red wine Substance use: never Substance use type: does not use Living arrangements: alone Spiritual care concerns: No Exam Narrative: GENERAL: Well-appearing, well-nourished, and in no acute distress. HEAD: Normocephalic, atraumatic. EYES: PERRLA and EOMI. ENT: Nares clear, no rhinorrhea or epistaxis. Mucous membranes moist. NECK: Supple. CHEST: Clear to auscultation. No respiratory distress. HEART: Regular rate and rhythm. No murmur heard. Normal peripheral pulses. ABDOMEN: Soft, nontender, nondistended, normal active bowel sounds. EXTREMITIES: Normal range of motion in all extremities except for left lower extremity. There is tenderness to palpation of the left hip. No edema. SKIN: Warm, dry, no rash. NEURO: No focal deficits. Alert and oriented x3. PSYCH: Normal mood and affect. Course Vital Signs Vital signs: Vital Signs Temperature 36.6 C 01/03/23 19:55 Pulse Rate 99 01/03/23 19:55 Respiratory Rate 26 H 01/03/23 19:55 Blood Pressure 156/92 H 01/03/23 19:55 Pulse Oximetry 95 01/03/23 19:55 Oxygen Delivery Room Air 01/03/23 19:55 Temperature 36.6 C 01/03/23 19:55 Pulse Rate 104 H 01/03/23 20:55 Respiratory Rate 19 01/03/23 20:55 Blood Pressure 156/92 H 01/03/23 20:55 Pulse Oximetry 96 01/03/23 20:55 Oxygen Delivery Room Air 01/03/23 19:55 Medical Decision Making [facility] Narrative Medical decision making narrative: Differential diagnosis includes syncope, electrolyte abnormalit
[2023-01-03] MEDS: SODIUM CHLORIDE 0.9% IV 1,000 ML 125 ML IV CONT (22:40)
--- NOTE | 2023-01-03 22:50 | PC.NURSE ---
Patient was actively vomiting when normal saline was given. Notified EDP Dr. Middleton who advised to give another 4mg IVP Zofran.
[2023-01-03 22:51] VITALS: BP 177/84; PULSE 105; RESP 30; O2SAT 94
[2023-01-03 23:22] LABS: Influenza A QL RT-PCR Negative (Negative); Influenza B QL RT-PCR Negative (Negative); RSV RNA, RT-PCR Negative (Negative); SARS-CoV-2 RNA PCR Negative (Negative)
[2023-01-04] VITALS (15 sets, daily range): BP systolic 148–165; BP diastolic 64–89; PULSE 95–112; RESP 14–27; TEMP 36.1–36.8; O2SAT 90–97; BMI 23.2
[2023-01-04 02:07] LABS: Appearance Urine Clear (Clear); Bilirubin Urine Negative (Negative); Blood Urine Negative (Negative); Color Urine Yellow (Yellow); Glucose Urine UA Negative (Negative); Ketones Urine Negative (Negative); Leukocyte Esterase Ur Negative LEU/UL (Negative); Nitrate Urine Negative (Negative); Protein Urine Negative (Negative); Specific Grav Ur 1.009 (1.001-1.035); Urobilinogen Urine 0.2 mg/dL (<2.0); pH Urine 5.5 (5.0-9.0)
[2023-01-04 02:11] LABS: Add Urine Microscopic? NO
--- NOTE | 2023-01-04 03:54 | ADMGEN ---
This patient, Anay Summers, was admitted to IMU Room 205-02. Patient/family oriented to hospital policies and general routines including ID bracelet, bed and alarms, visiting hours, pain management, procedures, bathroom and other care routines, personal items, smoking policy, room service/diet, and visiting hours. Information on how to activate the Rapid Response Team has been discussed. Patient/Family are encouraged to report perceived risks to care and to ask questions if they do not understand what they are told or what they should do.
[2023-01-04] MEDS: ALBUTEROL SULFATE (*SP) AEROSOL 1 PUFF 2 PUFF INHALATION (04:21)
[2023-01-04 05:49] LABS: Parathyroid Intact 193.4 pg/mL (7.5-53.5)
[2023-01-04 06:39] LABS: Vitamin D 25 Hydroxy 24.6 ng/mL
[2023-01-04] MEDS: SODIUM CHLORIDE 0.9% IV 1,000 ML 125 ML IV CONT ×3 (07:09→23:15)
--- NOTE | 2023-01-04 08:05 | PM.CNOR ---
Assessment and Plan Assessment and plan (1) Closed subcapital fracture of left femur: Qualifiers: Encounter type: initial encounter Qualified Code(s): S72.012A - Unspecified intracapsular fracture of left femur, initial encounter for closed fracture Code(s): S72.012A - Unspecified intracapsular fracture of left femur, initial encounter for closed fracture Status: Acute Assessment and Plan: 77-year-old woman with fall at home yesterday. Left hip fracture with impaction. New patient evaluation for chief complaint Left hip fracture. History, physical exam and radiographs reviewed with the patient. Discussed the condition, nature, etiology and course of natural history with the patient. Treatment options including surgical and nonoperative treatment were reviewed. Risks and benefits of each as well as alternatives reviewed. The patient's questions were answered. Conservative treatment ice, Pain control, mechanical DVT prophylaxis. Discussed nonoperative and operative treatment options with the patient. Risks and benefits of each as well as alternatives were reviewed. All of the patient's questions were answered. The risks of surgery reviewed including but not limited to: Neurovascular damage, wound complication, infection, blood clot, pulmonary embolus, stroke, myocardial infarction, and anesthetic risks up to and including . Continued pain and possible dysfunction were explained. Specific risks of the procedure including later recurrence of deformity. No guarantees were offered. If hardware used, discussed risk of failure/ breakage and possible need for removal. If complications occur, the patient understands the need for further treatment, possible further surgery. Patient verbalizes understanding and wishes to proceed. PLAN: left hip pinning History of Present Illness HPI Consult date: 01/04/23 Requesting physician: Trevon Middleton MD Chief complaint: Dizziness, Adequate Loss, Left Subcapital Femur Fr Narrative: 77-year-old woman lives at home alone. Independent ambulator. Lost her balance and fell yesterday on the left hip. Radiographs in the emergency room show a hip fracture. Admitted for further care. Denies numbness and tingling. She does have previous the low back and right hip problems but denies any prior problems with the left hip. Review of Systems Constitutional: Constitutional: Denies fever(s) Eyes: Eyes: Denies blurry vision ENT: Reports Normal hearing present Cardiovascular: Cardiovascular: Denies chest pain and Denies dyspnea Respiratory: Respiratory: Denies dyspnea and Denies wheezing Gastrointestinal: Gastrointestinal: Denies abdominal pain Genitourinary: Genitourinary: Denies urinary urgency Musculoskeletal: Musculoskeletal: Reports as per HPI and Denies numbness Integumentary/Breasts: Skin/Breast: Denies changing lesions and Denies sores Neurologic: Reports Normal hearing present, Denies behavioral changes, Denies confusion, Denies numbness and Denies convulsions Psychiatric: Psychiatric: Denies behavioral changes, Denies confusion and Denies hallucinations Endocrine: Endocrine: Denies heat intolerance Hematologic/Lymphatic: Hematologic/Lymphatic: Denies easy bleeding Allergic/Immunologic: Allergic/Immunologic: Denies wheezing PMFSH Past Medical History Medical History COPD (chronic obstructive pulmonary disease) Emphysema lung Interstitial lung disease Mixed hyperlipidemia Tobacco abuse Vitamin D deficiency Wheezing Family History Family History Mother Family history of cardiovascular disease Family history of malignant neoplasm, Onset Age: 83 Father Patient's father is , Onset Age: 57 Cerebrovascular accident, Onset Age: 57 Sibling Family history of lung cancer Other Patient's bro
[2023-01-04] MEDS: FLUTICASONE/UMECLIDIN/VILANTER 200-62.5-25 MCG ELLIPTA 1 PUFF INHALATION (08:13)
[2023-01-04] MEDS: ACETAMINOPHEN 500 MG TABLET 1000 MG PO (08:29)
--- NOTE | 2023-01-04 13:39 | PC.NURSE ---
This patient, Anay Summers, was transferred to [[facility] ] on 01/04/23 at 1339. Personal belongings sent with patient. Report given to [ Nan]. Appropriate documentation sent with patient.
--- NOTE | 2023-01-04 14:19 | PC.NURSE ---
patient received as a transfer from IMU. belongings with patient. patient oriented to room and call system.
[2023-01-04] MEDS: ACETAMINOPHEN 325 MG TABLET 650 MG PO (15:19)
--- NOTE | 2023-01-04 15:26 | PM.IMHP ---
H&P: HPI History of Present Illness Date/Time: 01/04/23 15:26 Chief Complaint: Fall Narrative: Pt states she was at home bedin over her plant when she suddenly fell lost her balance, denies any chest pain or sob at the time but does not think it is a accident. pt has history of 3-4 similar falls. Pt is a smoker and has COPD. Pt feel and broke her left leg and arm Xray shows-?Left hip fracture with impaction, orthopedics aware. Pt is medically cleared for surgery Review of Systems Review of Systems: Severe left hip pain PMFSH Past Medical History Medical History COPD (chronic obstructive pulmonary disease) Emphysema lung Interstitial lung disease Mixed hyperlipidemia Tobacco abuse Vitamin D deficiency Wheezing Family History Family History Mother Family history of cardiovascular disease Family history of malignant neoplasm, Onset Age: 83 Father Patient's father is , Onset Age: 57 Cerebrovascular accident, Onset Age: 57 Sibling Family history of lung cancer Other Patient's brother is in good health Patient's sister is in good health Social History Social History Smoking packs per day: 1 Smoking cigarettes per day: 20.0 Years smoked: 50 Smoking pack-years: 50.00 Smoking status: Current every day smoker Tobacco type: cigarettes Second hand tobacco smoke exposure: Yes Alcohol intake: current Drinks per week: 21 Alcohol use details: red wine Substance use: never Substance use type: does not use Lack of Transportation: No Lack of Food: Never True Current Housing: I Have Housing Concerned About Future Housing: No Difficulty Paying Gas/Electric Bills: No Difficulty Paying for Meds: No Currently Unemployed: No Education: Bachelor's Degree Difficulty w/ Childcare or Family Care: No Living arrangements: alone Spiritual care concerns: No Meds Home Medications and Allergies Home Medications Medication Instructions Recorded Confirmed Type cyanocobalamin (vitamin B-12) 1,000 mcg PO DAILY 07/04/20 01/04/23 History 1,000 mcg capsule azelastine 137 mcg (0.1 %) nasal 1 spray intranasal Q12H PRN 12/25/21 01/04/23 History spray aerosol Allergy Symptoms albuterol sulfate 90 mcg/actuation 1 inh inhalation Q4H PRN shortness 06/21/22 01/04/23 Rx aerosol inhaler of breath or wheezing #8.5 grams ezetimibe 10 mg-simvastatin 20 mg 1 tablet PO QPM #90 tabs 09/21/22 01/04/23 Rx tablet (Vytorin) fluticasone fur. 200 mcg-umeclid 1 inh inhalation DAILY #60 ea 12/20/22 01/04/23 Rx 62.5 mcg-vilant 25 mcg inhalat.powder (Trelegy Ellipta) Allergies Allergy/AdvReac Type Severity Reaction Status Date / Time No Known Allergies Allergy Unknown Verified 12/20/22 14:07 Vital Signs Vital Signs - 24 hr 01/03/23 19:55 01/03/23 20:55 01/03/23 22:51 Temperature 36.6 C Pulse Rate 99 104 H 105 H Respiratory Rate 26 H 19 30 H Blood Pressure 156/92 H 156/92 H 177/84 H Pulse Oximetry 95 96 94 Oxygen Delivery Room Air 01/04/23 00:27 01/04/23 02:07 01/04/23 03:34 Temperature Pulse Rate 110 H 112 H 108 H Respiratory Rate 24 H 19 27 H Blood Pressure 165/86 H 158/82 H 148/75 H Pulse Oximetry 93 93 93 Oxygen Delivery 01/04/23 03:57 01/04/23 04:00 01/04/23 04:00 Temperature 36.8 C Pulse Rate 108 H 107 H Respiratory Rate 18 Blood Pressure 159/67 H Pulse Oximetry 97 Oxygen Delivery Room Air 01/04/23 04:22 01/04/23 08:13 01/04/23 08:50 Temperature 36.5 C Pulse Rate 105 H 99 105 H Respiratory Rate 18 18 Blood Pressure 157/64 H Pulse Oximetry 96 90 Oxygen Delivery Room Air 01/04/23 12:36 01/04/23 08:00 01/04/23 08:00 Temperature 36.4 C Pulse Rate 95 99 Respiratory Rate 18 Blood Pressure 157/67
[2023-01-04] MEDS: EZETIMIBE 10 MG TABLET PO (17:39)
[2023-01-04] MEDS: SIMVASTATIN 20 MG TABLET PO (17:39)
[2023-01-05] VITALS (17 sets, daily range): BP systolic 107–173; BP diastolic 60–96; PULSE 93–119; RESP 15–20; TEMP 36.2–37; O2SAT 91–100
[2023-01-05] MEDS: SODIUM CHLORIDE 0.9% IV 1,000 ML 125 ML IV CONT (05:11)
[2023-01-05] MEDS: MORPHINE SULFATE (*CRX) 4 MG/ML INJ 2 MG IV PUSH (06:50)
--- NOTE | 2023-01-05 08:25 | WPDHPUPDATE1 ---
History and Physical Update Update Date/Time: 01/05/23 08:25 History and Physical has been reviewed, including an updated exam of the patient. There are NO changes in the patient's condition. Risks, benefits, and alternatives have been discussed and questions answered. Patient agrees to proceed with procedure.
[2023-01-05] MEDS: FLUTICASONE/UMECLIDIN/VILANTER 200-62.5-25 MCG ELLIPTA 1 PUFF INHALATION (08:29)
[2023-01-05] MEDS: LACTATED RINGERS 1,000 ML 30 ML IV CONT (13:10)
--- NOTE | 2023-01-05 13:14 | WPDANESEPPF ---
Anes - Initial Pre Proc Eval Procedure: Operation Date: 01/05/23 14:00 Proposed Procedures p Left Hip Pinning Cannulated Screws(Left) - Luis M Reyes MD Date/Time: 01/05/23 13:14 Surgeon: Sanam Jason DO Pre Op Diagnosis: Dizziness, Adequate Loss, Left Subcapital Femur Fr Patient Data Age: 77 Gender: F Height: 1.6 m Weight: 59.5 kg Last Vital Signs Temp 37.0 C 01/05/23 05:48 Pulse 110 H 01/05/23 08:00 Resp 15 01/05/23 05:48 BP 162/96 H 01/05/23 06:48 Pulse Ox 94 01/05/23 05:48 O2 Del Method Room Air 01/04/23 20:00 Allergies Allergy/AdvReac Type Severity Reaction Status Date / Time No Known Allergies Allergy Unknown Verified 01/05/23 13:11 Home Medications Medication Instructions Recorded Confirmed Type cyanocobalamin (vitamin B-12) 1,000 mcg PO DAILY 07/04/20 01/04/23 History 1,000 mcg capsule azelastine 137 mcg (0.1 %) nasal 1 spray intranasal Q12H PRN 12/25/21 01/04/23 History spray aerosol Allergy Symptoms albuterol sulfate 90 mcg/actuation 1 inh inhalation Q4H PRN shortness 06/21/22 01/04/23 Rx aerosol inhaler of breath or wheezing #8.5 grams ezetimibe 10 mg-simvastatin 20 mg 1 tablet PO QPM #90 tabs 09/21/22 01/04/23 Rx tablet (Vytorin) fluticasone fur. 200 mcg-umeclid 1 inh inhalation DAILY #60 ea 12/20/22 01/04/23 Rx 62.5 mcg-vilant 25 mcg inhalat.powder (Trelegy Ellipta) Patient hx anesthesia problems: none Family hx anesthesia problems: none Results Review: All pre-operative results and documents have been reviewed as part of the pre-operative evaluation. [facility] Past Medical History Medical History COPD (chronic obstructive pulmonary disease) Emphysema lung Interstitial lung disease Mixed hyperlipidemia Tobacco abuse Vitamin D deficiency Wheezing Family History Family History Mother Family history of cardiovascular disease Family history of malignant neoplasm, Onset Age: 83 Father Patient's father is , Onset Age: 57 Cerebrovascular accident, Onset Age: 57 Sibling Family history of lung cancer Other Patient's brother is in good health Patient's sister is in good health Social History Social History Smoking packs per day: 1 Smoking cigarettes per day: 20.0 Years smoked: 50 Smoking pack-years: 50.00 Smoking status: Current every day smoker Tobacco type: cigarettes Second hand tobacco smoke exposure: Yes Alcohol intake: current Drinks per week: 21 Alcohol use details: red wine Substance use: never Substance use type: does not use Lack of Transportation: No Lack of Food: Never True Current Housing: I Have Housing Concerned About Future Housing: No Difficulty Paying Gas/Electric Bills: No Difficulty Paying for Meds: No Currently Unemployed: No Education: Bachelor's Degree Difficulty w/ Childcare or Family Care: No Living arrangements: alone Spiritual care concerns: No Anes - Eval Final PreProcedure Day of Procedure 01/05/23 13:14 Patient weight: normal Heart: regular rate and rhythm Lungs: clear to auscultation and normal air movement Airway: Mallampati scale class II Neurological: alert and oriented Last oral intake: >/= 8 hours ASA classification: III Emergent: no Anesthetic plan: proceed Anesthesia type and monitoring: general LMA and standard monitoring Results Review: All pre-operative results and documents have been reviewed as part of the pre-operative evaluation. Informed Consent: The patient's anesthetic plan and its attendant risks and benefits were discussed with the patient/family/POA. Questions were solicited and answers provided to the satisfaction of the patient/family/POA.
[2023-01-05] MEDS: ACETAMINOPHEN 500 MG TABLET 1000 MG PO (13:18)
[2023-01-05] MEDS: KETOROLAC 15 MG/ML VIAL (*BKC) IV PUSH (13:24)
--- NOTE | 2023-01-05 13:32 | PM.IMPN ---
Progress Note: A&P Assessment and Plan (1) Closed subcapital fracture of left femur: Qualifiers: Encounter type: initial encounter Qualified Code(s): S72.012A - Unspecified intracapsular fracture of left femur, initial encounter for closed fracture Code(s): S72.012A - Unspecified intracapsular fracture of left femur, initial encounter for closed fracture Status: Acute Assessment and Plan: Pt seen by orthopedics Pt is npo, for left hip pinning today (2) Fall from ground level: Code(s): W18.30XA - Fall on same level, unspecified, initial encounter Status: Acute Assessment and Plan: Loss of balance mentioned during fall Continue telemetry monitoring for any arrthymnias CT head shows -1. No acute intracranial process. 2. Moderate to large amount of scattered white matter hypoattenuation consistent with chronic small vessel ischemic disease. 3. Chronic small right mastoid effusion Pt will have orthostatics checked after surgery Many benefit from some balance retraining (3) COPD (chronic obstructive pulmonary disease): Code(s): J44.9 - Chronic obstructive pulmonary disease, unspecified Status: Acute Assessment and Plan: History of continue home inhalers (4) Tobacco abuse: Code(s): Z72.0 - Tobacco use Status: Acute Assessment and Plan: Pt smokers 10-20 a day Refuses nicotine patch in hospital Plan Dvt prop: orthopedics to decide Subjective Date/time seen: 01/05/23 13:32 Interval history: Pt admitted with Left hip fracture with impaction, going for left hip pinning today Review of Systems Review of Systems: Severe left hip pain Exam Const: General: cooperative, healthy appearing and overweight; No in distress Nutritional Appearance: overweight Orientation/consciousness: oriented to person HENMT: Head: normal to inspection Resp: Effort & Inspection: no respiratory distress Auscultation: no rhonchi and no wheezes Cardio: Rate: regular rate Rhythm: regular rhythm GI: Inspection: normal to inspection Auscultation: normal bowel sounds Neuro: General: oriented to person Extrem: Other: severe L hip pain Objective Data Vital Signs Vital Signs: Vital Signs - 24 hr 01/04/23 14:00 01/04/23 16:00 01/04/23 21:37 Temperature 36.1 C L 36.5 C Pulse Rate 96 97 97 Respiratory Rate 18 14 Blood Pressure 156/79 H 162/89 H Pulse Oximetry 93 95 Oxygen Delivery 01/04/23 20:00 01/05/23 05:48 01/05/23 00:00 Temperature 37.0 C Pulse Rate 112 H 111 H Respiratory Rate 15 Blood Pressure 173/91 H Pulse Oximetry 95 94 Oxygen Delivery Room Air 01/04/23 20:00 01/05/23 04:00 01/05/23 06:48 Temperature Pulse Rate 96 119 H 111 H Respiratory Rate Blood Pressure 162/96 H Pulse Oximetry Oxygen Delivery 01/05/23 08:00 Temperature Pulse Rate 110 H Respiratory Rate Blood Pressure Pulse Oximetry Oxygen Delivery Intake/Output Intake/Output: Intake & Output 01/02/23 01/03/23 01/04/23 01/05/23 23:59 23:59 23:59 23:59 Intake Total 3360 1500 Output Total 750 1850 Balance 2610 -350 Meds/Results Medications: Active Medications Generic Name Dose Route Start Last Admin Trade Name Freq PRN Reason Stop Dose Admin Acetaminophen 650 mg 01/04/23 08:37 01/04/23 15:19 Acetaminophen 325 Mg Tablet PO 650 mg Q8H PRN Administration Mild Pain (1-3) or Fever Albuterol 1 puff 01/04/23 16:10 Albuterol Sulfate (*Sp) Aerosol 1 Puff INHALATION Q4HRT PRN shortness of breath or wheezing Azelastine HCl 1 spray 01/04/23 16:10 Azelastine Hcl Nasal 0.1% 137 Mcg/Spr 30 Ml Btl NASAL Q12H PRN Allergy Symptoms Ezetimibe 10 mg 01/04/23 18:00 01/04/23 17:39 Ezetimibe 10 Mg Tablet PO 10 mg QPM TORITO Administration Fluticasone/Umeclidinium/Vilanterol 1 puff 01/04/23 08:00 01/05/23 08:29 Fluticasone/Umecli
[2023-01-05] MEDS: TRANEXAMIC ACID 1,000 MG/10 ML AMPUL 1000 MG IV PUSH (13:34)
[2023-01-05] MEDS: ceFAZolin 2 GM/D5W 50 ML 2 GM/50 ML BAG IVPB (14:02)
--- NOTE | 2023-01-05 14:07 | W.PM.PROC2 ---
Procedure Note - Detailed Date of Procedure 01/05/23 Pre-op Diagnosis Dizziness, Adequate Loss, Left Subcapital Femur Fr Post-op Diagnosis Same Procedure Performed Left hip pinning Surgeon Luis M Reyes MD Radial Drill Press Set Up Operator 1st psychological assistant Anesthesia General Indications 77-year-old woman fell and sustained a left hip femoral neck fracture. Presents for operative treatment. Indicated for hip pinning. Description of Procedure Informed consent signed. Extremity marked in preoperative holding area. Patient received intravenous antibiotics. Brought to operating room and underwent general anesthetic by the Anesthesia Team. Positioned supine on the fracture table. Left leg placed into longitudinal traction. Right leg extended out of field. Image intensification brought in and confirmed reduction of fracture. Left hip prepped and draped in usual sterile surgical fashion using ChloraPrep skin solution. Image intensification used to guide the starting position and a longitudinal incision made with 10 blade knife over the lateral proximal femur. Blunt dissection carried down to the lateral femur. Bleeding controlled with electrocautery. First guide pin placed in the inferior center position of the femoral neck and head. Confirmed with image intensification. Two subsequent pins placed superior and anterior and superior and posterior to the 1st pin to create an inverted triangle type pattern. Pins confirmed with image intensification. Length of screw measured, reaming performed. Appropriate size screw placed with good compression and fixation noted for 2 pins. the 3rd screw had poor fixation And was removed. Guide pins removed. Final image intensification confirmed reduction of fracture and placement of hardware with threads past the fracture line and no protrusion of the hip joint. Wound thoroughly irrigated with antibiotic solution. Fascia repaired with 2 0 Vicryl interrupted sutures. Subcutaneous tissue repaired with 3 0 Monocryl interrupted suture. Skin approximated with 3 0 Monocryl running suture. Sterile dressing applied. Patient awoken from anesthesia, extubated and returned to recovery room in stable condition. All sponge needle and instrument counts correct at the end of the case. Implants Arthrex 7.0 mm cannulated screw X 2 (75mm each) Estimated Blood Loss 10 Drains No Packing No Pathology None sent Complications None Condition Stable Disposition PACU [facility] Billing Surgery - Charge Forward: Surgery Billing ([id number])
[2023-01-05] MEDS: BUPIVACAINE/EPINEPHRINE 0.5% 50 ML VIAL 20 ML INFILTRATE (14:37)
[2023-01-05] MEDS: SIMVASTATIN 20 MG TABLET PO (17:53)
[2023-01-05] MEDS: EZETIMIBE 10 MG TABLET PO (17:53)
[2023-01-05] MEDS: ACETAMINOPHEN 325 MG TABLET 650 MG PO (17:53)
[2023-01-05] MEDS: SENNA/DOCUSATE SODIUM TABLET 2 TAB PO (17:54)
[2023-01-05] MEDS: ASPIRIN 325 MG ENTERIC TABLET PO (21:00)
[2023-01-05] MEDS: ceFAZolin 1 GM/NS 50 ML 1 GM/50 ML BAG IVPB (21:00)
[2023-01-06] VITALS (15 sets, daily range): BP systolic 108–164; BP diastolic 62–89; PULSE 68–104; RESP 16–18; TEMP 36.2–36.5; O2SAT 95–99
[2023-01-06] MEDS: ACETAMINOPHEN 325 MG TABLET 650 MG PO ×3 (05:59→23:10)
[2023-01-06] MEDS: ceFAZolin 1 GM/NS 50 ML 1 GM/50 ML BAG IVPB ×2 (05:59→14:09)
[2023-01-06 06:10] LABS: Basophils Percent Auto 0.2 % (0.2-1.2); Eosinophils Percent Auto 0.1 % (0-4.4); Hematocrit 38.2 % (37.0-47.0); Immature Granulocyte Absolute 0.12 K/mm3 (0.00-0.031); Immature Granulocyte Percent A 0.7 % (0-0.5); Lymphocytes Absolute Auto 1.39 K/mm3 (0.9-3.2); Lymphocytes Percent Auto 7.6 % (18.3-44.2); Mean Corpuscular HGB Conc 31.4 g/dl (32-36); Mean Corpuscular Hemoglobin 29.3 pg (26-34); Mean Corpuscular Volume 93.4 fl (80-100); Mean Platelet Volume 11.1 fl (7.4-10.4); Monocytes Absolute Auto 1.1 K/mm3 (0.1-0.6); Monocytes Percent Auto 6.1 % (2.6-8.5); Neutrophils Absolute Auto 15.7 K/mm3 (1.3-6.7); Neutrophils Percent Auto 85.3 % (45.5-73.1); Platelet Count Result 233 k/mm3 (150-375); Red Blood Count 4.09 M/mm3 (4.2-5.4); Red Cell Distribution Width 13.8 % (11.5-14.5); White Blood Count 18.4 K/mm3 (4.5-10.0)
[2023-01-06 06:18] LABS: Anion Gap 8 mmol/L (8-16); Blood Urea Nitrogen 17 mg/dL (7-17); Calcium 9.9 mg/dL (8.4-10.2); Carbon Dioxide 21 mmol/L (22-30); Chloride 106 mmol/L (98-107); Estimated CRCL calculation 36 ml/min; Estimated Glomerular Filt Rate 54; Glucose 150 mg/dL (65-110); Potassium 3.8 mmol/L (3.4-5.0); Sodium 135 mmol/L (137-145)
[2023-01-06] MEDS: FLUTICASONE/UMECLIDIN/VILANTER 200-62.5-25 MCG ELLIPTA 1 PUFF INHALATION (08:58)
--- NOTE | 2023-01-06 09:18 | PM.PNORT ---
Progress Note: A&P Assessment and Plan (1) Closed subcapital fracture of left femur: Qualifiers: Encounter type: initial encounter Qualified Code(s): S72.012A - Unspecified intracapsular fracture of left femur, initial encounter for closed fracture Code(s): S72.012A - Unspecified intracapsular fracture of left femur, initial encounter for closed fracture Status: Acute Assessment and Plan: POD #1 : Left hip pinning Continue PT/OT. WBAT. Walker. HIGH FALL RISK. Continue pain control. Ice Hip. Protect skin. Remove Finn. DVT prophylaxis with Aspirin. SCDs. Incentive Spirometry Use reviewed. Monitor Dressing. Change prior to discharge. Bowel Regimen. Dispo: [facility] vs. SNF with Rehab pending progress with PT/OT and medical clearance. (2) Fall from ground level: Code(s): W18.30XA - Fall on same level, unspecified, initial encounter Status: Acute (3) Emphysema lung: Code(s): J43.9 - Emphysema, unspecified Status: Acute (4) COPD (chronic obstructive pulmonary disease): Code(s): J44.9 - Chronic obstructive pulmonary disease, unspecified Status: Acute (5) Interstitial lung disease: Code(s): J84.9 - Interstitial pulmonary disease, unspecified Status: Acute (6) Wheezing: Code(s): R06.2 - Wheezing Status: Acute (7) Mixed hyperlipidemia: Code(s): E78.2 - Mixed hyperlipidemia Status: Acute Subjective Subjective Date/Time Seen: 01/06/23 09:18 Post Op day: 1 Interval history: POD #1: Left hip pinning Patient doing very well. Pain well controlled. Hopeful for d/c to [facility] or Rehab at [place]. Review of Systems Constitutional: Constitutional: Denies chills, Denies fatigue, Denies fever(s), Denies night sweats and Denies weakness Cardiovascular: Cardiovascular: Denies chest pain, Denies lightheadedness, Denies palpitations and Denies dyspnea Respiratory: Respiratory: Denies cough, Denies dyspnea and Denies wheezing Gastrointestinal: Gastrointestinal: Denies abdominal pain, Denies diarrhea, Denies nausea and Denies vomiting Musculoskeletal: Musculoskeletal: Reports arthralgias (left hip ), Reports joint swelling (left hip ) and Denies numbness Neurologic: Denies numbness and Denies weakness Endocrine: Endocrine: Denies fatigue and Denies palpitations Allergic/Immunologic: Allergic/Immunologic: Denies wheezing Exam Const: General: comfortable and no acute distress Orientation/consciousness: patient oriented x3 Limitations: no limitations Resp: Effort & Inspection: normal respiratory effort Cardio: Rate: regular rate Rhythm: regular rhythm GI: Inspection: non-distended Skin: General skin exam: normal color and wounds noted (incision left hip C/D/I ) Wounds: wounds noted (incision left hip C/D/I ) Neuro: General: patient oriented x3 Extrem: Left lower extremity: hip/thigh Details: tenderness Location: of the hip Location: laterally and anteriorly, swelling (thigh soft ) Location: of the hip (lateral. ), abnormal ROM (limitations with internal/external rotation and flexion/extension due to recent surgical intervention ) and other (incision lateral hip c/d/i. ), knee Details: normal to inspection and normal ROM; no tenderness and no swelling, lower leg (Negative Ariadna's Sign ) Details: no edema, ankle (+ankle dorsiflexion/plantarflexion ) Details: normal to inspection, no edema and normal ROM; no tenderness, no swelling and no warmth and foot Details: normal capillary refill, toes with normal ROM, vascular exam Details: dorsalis pedis pulse present and motor-sensory exam light-touch normal in all toes; no tenderness, no ecchymosis and no crepitus Psych: Mental Status: mental status grossly normal Affect: normal affect Objective Data Vital Signs Vital Signs: Vital Signs - 24 hr 01/05/23 14:57 01/05/23 15:10 01/05/23 15:25 Temperature 37.0 C Pulse Rate 102 H 103 H 103 H Respiratory Rate 18 20 2
[2023-01-06] MEDS: ASPIRIN 325 MG ENTERIC TABLET PO ×2 (09:26→20:59)
--- NOTE | 2023-01-06 14:55 | PM.IMPN ---
Progress Note: A&P Assessment and Plan (1) Closed subcapital fracture of left femur: Qualifiers: Encounter type: initial encounter Qualified Code(s): S72.012A - Unspecified intracapsular fracture of left femur, initial encounter for closed fracture Code(s): S72.012A - Unspecified intracapsular fracture of left femur, initial encounter for closed fracture Status: Acute Assessment and Plan: Pt seen by orthopedics Sp left hip pinning post op day 1 Pt doing excellent no issues (2) Fall from ground level: Code(s): W18.30XA - Fall on same level, unspecified, initial encounter Status: Acute Assessment and Plan: Loss of balance mentioned during fall Continue telemetry monitoring for any arrthymnias CT head shows -1. No acute intracranial process. 2. Moderate to large amount of scattered white matter hypoattenuation consistent with chronic small vessel ischemic disease. 3. Chronic small right mastoid effusion Pt will have orthostatics checked after surgery Many benefit from some balance retraining can dc with ent apt for balance clinic and r mastoid effusion Dc to Acute rehab [facility] soon (3) COPD (chronic obstructive pulmonary disease): Code(s): J44.9 - Chronic obstructive pulmonary disease, unspecified Status: Acute Assessment and Plan: History of continue home inhalers (4) Tobacco abuse: Code(s): Z72.0 - Tobacco use Status: Acute Assessment and Plan: Pt smokers 10-20 a day Refuses nicotine patch in hospital Plan Dvt prop: ASA Subjective Date/time seen: 01/06/23 14:55 Interval history: Pt admitted with Left hip fracture with impaction, going for left hip pinning, post op day 1 Pt doing well dc to [place] soon Pt to have orthostatics checked while in hospital concerns of loss of balance on admission Review of Systems Review of Systems: No specific complaints Exam Const: General: cooperative, healthy appearing and overweight; No in distress Nutritional Appearance: overweight Orientation/consciousness: oriented to person HENMT: Head: normal to inspection Resp: Effort & Inspection: no respiratory distress Auscultation: no rhonchi and no wheezes Cardio: Rate: regular rate Rhythm: regular rhythm GI: Inspection: normal to inspection Auscultation: normal bowel sounds Neuro: General: oriented to person Extrem: Other: severe L hip pain Objective Data Vital Signs Vital Signs: Vital Signs - 24 hr 01/05/23 14:57 01/05/23 15:10 01/05/23 15:25 Temperature 37.0 C Pulse Rate 102 H 103 H 103 H Respiratory Rate 18 20 20 Blood Pressure 148/88 H 164/70 H 167/70 H Pulse Oximetry 99 100 91 Oxygen Delivery Simple Face Mask Simple Face Mask Nasal Cannula Oxygen Flow Rate 8 8 3 01/05/23 15:40 01/05/23 15:55 01/05/23 16:10 Temperature Pulse Rate 101 H 102 H 98 Respiratory Rate 20 18 17 Blood Pressure 171/65 H 168/82 H 166/75 H Pulse Oximetry 95 97 97 Oxygen Delivery Nasal Cannula Nasal Cannula Nasal Cannula Oxygen Flow Rate 3 3 3 01/05/23 16:35 01/05/23 16:50 01/05/23 17:20 Temperature 36.3 C L 36.2 C L 36.5 C Pulse Rate 97 93 99 Respiratory Rate 16 16 16 Blood Pressure 150/88 H 114/89 146/80 H Pulse Oximetry 100 100 98 Oxygen Delivery Oxygen Flow Rate 01/05/23 18:08 01/05/23 20:50 01/05/23 20:00 Temperature 36.4 C L 36.6 C Pulse Rate 104 H 100 Respiratory Rate 18 17 Blood Pressure 164/92 H 107/60 Pulse Oximetry 100 96 96 Oxygen Delivery Nasal Cannula Oxygen Flow Rate 2 01/06/23 02:08 01/05/23 20:00 01/06/23 00:00 Temperature 36.3 C L Pulse Rate 86 106 H 75 Respiratory Rate 16 Blood Pressure 132/65 Pulse Oximetry 99 Oxygen Delivery Oxygen Flow Rate 01/06/23 04:00 01/06/23 05:41 01/06/23 08:59 Temperature 36.4 C L Pulse Rate 68 87 Respiratory Rate 16 Blood Pressure 142/62 H Pulse Oximetry 97 95 Oxygen Delivery Room
[2023-01-06] MEDS: SIMVASTATIN 20 MG TABLET PO (18:18)
[2023-01-06] MEDS: EZETIMIBE 10 MG TABLET PO (18:18)
[2023-01-06 19:38] LABS: Ionized Calcium 5.3 mg/dL (4.7-5.5)
[2023-01-07] VITALS (8 sets, daily range): BP systolic 148–155; BP diastolic 62–66; PULSE 90–103; RESP 16–20; TEMP 36.1–36.5; O2SAT 92–96
[2023-01-07 06:23] LABS: Hematocrit 37.4 % (37.0-47.0); Mean Corpuscular HGB Conc 32.1 g/dl (32-36); Mean Corpuscular Hemoglobin 29.5 pg (26-34); Mean Corpuscular Volume 91.9 fl (80-100); Platelet Count Result 238 k/mm3 (150-375); Red Blood Count 4.07 M/mm3 (4.2-5.4); Red Cell Distribution Width 14.2 % (11.5-14.5); White Blood Count 14.6 K/mm3 (4.5-10.0)
[2023-01-07 06:34] LABS: Anion Gap 9 mmol/L (8-16); Blood Urea Nitrogen 17 mg/dL (7-17); Calcium 10.1 mg/dL (8.4-10.2); Carbon Dioxide 23 mmol/L (22-30); Chloride 107 mmol/L (98-107); Estimated CRCL calculation 39 ml/min; Estimated Glomerular Filt Rate > 60; Glucose 100 mg/dL (65-110); Potassium 3.4 mmol/L (3.4-5.0); Sodium 139 mmol/L (137-145)
[2023-01-07] MEDS: FLUTICASONE/UMECLIDIN/VILANTER 200-62.5-25 MCG ELLIPTA 1 PUFF INHALATION (07:24)
[2023-01-07] MEDS: polyethylene glycoL 3350 17 GM POWD.PACK PO (08:34)
[2023-01-07] MEDS: SENNA/DOCUSATE SODIUM TABLET 2 TAB PO (08:34)
[2023-01-07] MEDS: ASPIRIN 325 MG ENTERIC TABLET PO (08:34)
--- NOTE | 2023-01-07 09:46 | PM.PNORT ---
Progress Note: A&P Assessment and Plan (1) Closed subcapital fracture of left femur: Qualifiers: Encounter type: initial encounter Qualified Code(s): S72.012A - Unspecified intracapsular fracture of left femur, initial encounter for closed fracture Code(s): S72.012A - Unspecified intracapsular fracture of left femur, initial encounter for closed fracture Status: Acute Assessment and Plan: POD #2: Left hip pinning Continue PT/OT. WBAT. Walker. HIGH FALL RISK. Continue pain control. Ice Hip. Protect skin. Remove Finn. DVT prophylaxis with Aspirin. SCDs. Incentive Spirometry Use reviewed. Monitor Dressing. Change prior to discharge. Bowel Regimen. Dispo: Home with Home Health (2) Fall from ground level: Code(s): W18.30XA - Fall on same level, unspecified, initial encounter Status: Acute (3) Emphysema lung: Code(s): J43.9 - Emphysema, unspecified Status: Acute (4) COPD (chronic obstructive pulmonary disease): Code(s): J44.9 - Chronic obstructive pulmonary disease, unspecified Status: Acute (5) Interstitial lung disease: Code(s): J84.9 - Interstitial pulmonary disease, unspecified Status: Acute (6) Wheezing: Code(s): R06.2 - Wheezing Status: Acute (7) Mixed hyperlipidemia: Code(s): E78.2 - Mixed hyperlipidemia Status: Acute Subjective Subjective Date/Time Seen: 01/07/23 09:46 Post Op day: 2 Interval history: POD #2: Left hip pinning Patient doing very well. Pain well controlled. Feels that she would be most comfortable going home with home health as opposed to [facility]. Review of Systems Constitutional: Constitutional: Denies chills, Denies fatigue, Denies fever(s), Denies night sweats and Denies weakness Cardiovascular: Cardiovascular: Denies chest pain, Denies lightheadedness, Denies palpitations and Denies dyspnea Respiratory: Respiratory: Denies cough, Denies dyspnea and Denies wheezing Gastrointestinal: Gastrointestinal: Denies abdominal pain, Denies diarrhea, Denies nausea and Denies vomiting Musculoskeletal: Musculoskeletal: Reports arthralgias (left hip ), Reports joint swelling (left hip ) and Denies numbness Neurologic: Denies numbness and Denies weakness Endocrine: Endocrine: Denies fatigue and Denies palpitations Allergic/Immunologic: Allergic/Immunologic: Denies wheezing Exam Const: General: comfortable and no acute distress Orientation/consciousness: patient oriented x3 Limitations: no limitations Resp: Effort & Inspection: normal respiratory effort Cardio: Rate: regular rate Rhythm: regular rhythm GI: Inspection: non-distended Skin: General skin exam: normal color and wounds noted (incision left hip C/D/I ) Wounds: wounds noted (incision left hip C/D/I ) Neuro: General: patient oriented x3 Extrem: Left lower extremity: hip/thigh Details: tenderness Location: of the hip Location: laterally and anteriorly, swelling (thigh soft ) Location: of the hip (lateral. ), abnormal ROM (limitations with internal/external rotation and flexion/extension due to recent surgical intervention ) and other (incision lateral hip c/d/i. ), knee Details: normal to inspection and normal ROM; no tenderness and no swelling, lower leg (Negative Ariadna's Sign ) Details: no edema, ankle (+ankle dorsiflexion/plantarflexion ) Details: normal to inspection, no edema and normal ROM; no tenderness, no swelling and no warmth and foot Details: normal capillary refill, toes with normal ROM, vascular exam Details: dorsalis pedis pulse present and motor-sensory exam light-touch normal in all toes; no tenderness, no ecchymosis and no crepitus Psych: Mental Status: mental status grossly normal Affect: normal affect Objective Data Vital Signs Vital Signs: Vital Signs - 24 hr 01/06/23 10:14 01/06/23 12:00 01/06/23 11:36 Temperature 36.5 C Pulse Rate 89 Respiratory Rate 16 Blood Pressure 108/69 1
[2023-01-07 12:18] LABS: Albumin 3.8 g/dL (3.8-4.8); Alpha 1 Globulin 0.3 g/dL (0.2-0.3); Beta 1 Globulin 0.5 g/dL (0.4-0.6); Gamma Globulin 1.4 g/dL (0.8-1.7); Protein, Total 7.3 g/dL (6.1-8.1)
--- NOTE | 2023-01-07 15:06 | PM.DS ---
DS: Admitting Diagnosis Discharge Date 01/07/2023 Admitting Diagnosis Fall DS: Discharge Diagnosis Discharge Diagnosis (1) Closed subcapital fracture of left femur: Qualifiers: Encounter type: initial encounter Qualified Code(s): S72.012A - Unspecified intracapsular fracture of left femur, initial encounter for closed fracture Code(s): S72.012A - Unspecified intracapsular fracture of left femur, initial encounter for closed fracture Status: Acute (2) Fall from ground level: Code(s): W18.30XA - Fall on same level, unspecified, initial encounter Status: Acute (3) COPD (chronic obstructive pulmonary disease): Code(s): J44.9 - Chronic obstructive pulmonary disease, unspecified Status: Acute (4) Tobacco abuse: Code(s): Z72.0 - Tobacco use Status: Acute DS: Summary Hospital Course Hospital Course: Patient presented with a ground level fall sustaining a left hip fracture.. Underwent left hip pinning on 01/05/2023. Doing well postsurgery will follow-up with orthopedics as outpatient basis. Has underlying COPD and interstitial lung disease. Time Spent with Patient Time attestation: Total time spent providing and/or coordinating discharge services: 35 minutes Exam Narrative: GENERAL: Well-appearing, well-nourished, and in no acute distress. HEAD: Normocephalic, atraumatic. EYES: PERRLA and EOMI. ENT: Nares clear, no rhinorrhea or epistaxis.? Mucous membranes moist. NECK: Supple. CHEST: Clear to auscultation.? No respiratory distress. HEART: Regular rate and rhythm.? No murmur heard.? Normal peripheral pulses. ABDOMEN: Soft, nontender, nondistended, normal active bowel sounds. EXTREMITIES: Normal range of motion in all extremities except for left lower extremity. Surgical dressing in place SKIN: Warm, dry, no rash. NEURO: No focal deficits.? Alert and oriented x3. PSYCH: Normal mood and affect. DS: Data Data Completed and Pending Labs on day of discharge: Labs from last 24 hours 01/07/23 01/04/23 06:08 04:46 WBC 14.6 H RBC 4.07 L Hgb 12.0 Hct 37.4 MCV 91.9 MCH 29.5 MCHC 32.1 RDW 14.2 Plt Count 238 MPV 11.0 H Sodium 139 Potassium 3.4 Chloride 107 Carbon Dioxide 23 Anion Gap 9 BUN 17 Creatinine 0.90 Estim Creat Clear Calc 39 Estimated GFR > 60 Glucose 100 Calcium 10.1 Ionized Calcium Amanda 5.3 Total Protein 7.3 Albumin 3.8 Eugay-6-Gxgqdeama 0.3 Ewaif-5-Wihxyhqja 1.0 H Tumv-0-Bxxvvhas 0.5 Itda-6-Qoguxvqs 0.4 Gamma Globulins 1.4 Abnorm Protein Band 1 see below Abnorm Protein Band 3 Not Reportable PEP Interpretation see below A Procedures/Treatments: Procedure Note - Detailed Date of Procedure 01/05/23 Pre-op Diagnosis Dizziness, Adequate Loss, Left Subcapital Femur Fr Post-op Diagnosis Same Procedure Performed Left hip pinning Surgeon Luis M Reyes MD Academy Director 1st ophthalmic assistant Anesthesia General Indications ?77-year-old woman fell and sustained a left hip femoral neck fracture.? Presents for operative treatment.? Indicated for hip pinning. Description of Procedure Informed consent signed.? Extremity marked in preoperative holding area.? Patient received intravenous antibiotics.? Brought to operating room and underwent general anesthetic by the Anesthesia Team.? Positioned supine on the fracture table.? Left leg placed into longitudinal traction.? Right leg extended out of field.? Image intensification brought in and confirmed reduction of fracture.? Left hip prepped and draped in usual sterile surgical fashion using ChloraPrep skin solution. Image intensification used to guide the starting position and a longitudinal incision made with 10 blade knife over the lateral proximal femur. Blunt dissection carried down to the lateral femur.? Bleeding controlled with electrocautery. First guide pin placed in the inferior center position of the femoral neck and head.? Conf
[2023-01-10 11:54] LABS: Creat 24 Hr 1.07; Pro/Creat Ratio 295; Protein,total, 24 Hr Ur 315 mg/24h
[2023-01-10 12:37] LABS: Vitamin D 1,25 (OH)2 Total 29 pg/mL (18-72); Vitamin D2 1,25 (OH)2 15 pg/mL; Vitamin D3 1,25 (OH)2 14 pg/mL
== END 2023-01-07 15:20 | disposition home health service (06) | DRG 482 ==
LOC: ANHED 23:26 → ANH3MEDSUR 01-04 00:55 → ANHIMU 01-04 03:26 → ANH3MEDSUR 01-04 13:59
PROVIDERS: Family Medicine; Orthopaedic Surgery; Admitting Provider Internal Medicine; Emergency Provider Emergency Medicine; PCP Family Medicine; Visit Provider Internal Medicine
PROC: 0QS734Z Reposition Left Upper Femur with Internal Fixation Device, Percutaneous Approach (ICD-10-PCS; principal; 2023-01-05 14:00)
DX: S72.012A Unspecified intracapsular fracture of left femur, initial encounter for closed fracture (principal); Z20.822 Contact with and (suspected) exposure to COVID-19; J44.9 Chronic obstructive pulmonary disease, unspecified; J43.9 Emphysema, unspecified; E78.2 Mixed hyperlipidemia; F17.210 Nicotine dependence, cigarettes, uncomplicated; W18.30XA Fall on same level, unspecified, initial encounter
CPT/HCPCS: 36415; 70450; 71045; 73502; 80048; 80053; 81003; 82306; 82330; 82652; 83970; 84155; 84165; 85025; 85027; 85610; 85730; 86334; 86335; 87637; 93005; 94640; 96361; 96374; 96375; 96376; 97110; 97116; 97161; 97165; 97530; 97535; 99199; 99285; A9270; C1713; C1769; G0378; J0690; J1100; J1885; J2270; J2405; J2704; J3010; J7030; J7120

== ENCOUNTER 2023-02-21 12:07 | Outpatient (CLI) | payer MEDICARE, SELFPAY ==
--- NOTE | ~2023-02-21 | XR_ITS ---
XR hip LT 2V w AP pelvis DATE: 02/21/2023 12:19 INDICATION: Follow-up left femur fracture TECHNIQUE: AP pelvis. AP and lateral views of left hip. COMPARISON: 01/03/2023 pelvis and left hip FINDINGS: There are 2 lag screws extending through the intertrochanteric area and femoral neck into t he left femoral head, traversing the mildly medially displaced left subcapital femoral neck fracture. There is no significant change in position or alignment since 01/03/2023. Diffuse osteopenia. The pubic symphysis and sacral iliac joints are intact. Prominent right hip osteoarthritis. Calcified uterine fibroid. Prominent distal abdominal aortic and bilateral common iliac and external iliac, common femoral and femoral artery calcifications. IMPRESSION: Status post ORIF left subcapital femoral neck fracture by 2 lag screws Reviewed, dictated and finalized at [facility]. PROCESSING CENTER MANAGER IMPRESSION: Status post ORIF left subcapital femoral neck fracture by 2 lag scr ews
== END 2023-02-21 12:08 | disposition home or self-care (01) ==
PROVIDERS: PCP Nurse Practitioner Adult Health; Visit Provider Orthopaedic Surgery
DX: S72.012A Unspecified intracapsular fracture of left femur, initial encounter for closed fracture (principal); X58.XXXA Exposure to other specified factors, initial encounter
CPT/HCPCS: 73502

== ENCOUNTER 2023-03-08 10:48 | Outpatient (CLI) | payer MEDICARE, SELFPAY ==
--- NOTE | ~2023-03-08 | US_ITS ---
EXAMINATION: US carotid duplex BI DATE: 03/08/2023 11:30 INDICATION: Bruit TECHNIQUE: Grayscale, color Doppler, and pulsed Doppler images of the cervical carotid arteries were obtained. The degree of vessel stenosis is placed in one of the following categories: normal, <50%, 5 0-69%, >=70% but less than near-occlusion, near-occlusion, or total occlusion. Note that percent sten osis relative to normal distal artery lumen diameter is indirectly measured from velocity measurement s as described by Anjum, et al. Radiology 2003; [id number]. COMPARISON: None. FINDINGS: RIGHT: The right common carotid artery (CCA) peak systolic velocity (PSV) is 98.5 cm/s. The right internal c arotid artery (ICA) PSV is 91.9 cm/s. The right ICA end-diastolic velocity (EDV) is 30.1 cm/s. The ri ght ICA/CCA PSV ratio is 0.9. Grayscale and color Doppler images yield an estimate of less than 50% d iameter reduction from plaque in the ICA. The external carotid artery (ECA) PSV is 77.9 cm/s. There i s antegrade flow in the right vertebral artery. LEFT: The left CCA PSV is 82.0 cm/s. The left ICA PSV is 78.5 cm/s. The left ICA EDV is 20.8 cm/s. The left ICA/CCA PSV ratio is 1.0. Grayscale and color Doppler images yield an estimate of less than 50% diam eter reduction from plaque in the ICA. The ECA PSV is 89.6 cm/s. There is bidirectional flow in the l eft vertebral artery. IMPRESSION: 1. Less than 50% stenosis in the right internal carotid artery. 2. Less than 50% stenosis in the left internal carotid artery. 3. Bidirectional left vertebral artery flow, suggesting possible left subclavian artery stenosis. Cli nical correlation with measurement of blood pressure in both upper extremities is recommended. Reviewed, dictated and finalized at [facility]. Reviewed, dictated and finalized at location [facility]. CENTER CONSULTANT IMPRESSION: 1. Less than 50% stenosis in the right internal carotid artery. 2. Less than 50% stenosis in the left internal carotid artery. 3. Bidirectional left vertebral artery flow, suggesting possible left subclavia n artery stenosis. Clinical correlation with measurement of blood pressure in b [facility] upper extremities is recommended.
--- NOTE | ~2023-03-08 | CT_ITS ---
CT Scan of the Chest without Contrast: Clinical Indication: Lung cancer screening, smoking history Technique: Contiguous sections were acquired throughout the chest without intravenous contrast. Dose reduction technique was used on this scan by utilizing automated exposure control and iterative recon struction technique. The dose-length product (DLP) was 57.55 mGy-cm. COMPARISON: 04/28/2021 Findings: There is no evidence of any significant mediastinal, hilar or axillary lymphadenopathy. Coronary milton ry calcifications are present. There is no evidence of pleural or pericardial effusion. Stenosis of chronic interstitial disease is similar to prior exam, with basilar and peripheral distri bution. Stable 6 mm right middle lobe pulmonary nodule. Images through the upper abdomen reveal no abnormalities. Impression: Lung RADS 2: Benign appearance. 12 follow-up screening CT advised. Reviewed, dictated and finalized at [facility]. TRANSMISSION TECHNICIAN Impression: Lung RADS 2: Benign appearance. 12 follow-up screening CT advised.
== END 2023-03-08 10:49 | disposition home or self-care (01) ==
LOC: ANHIMG 10:49
PROVIDERS: PCP Family Medicine; Visit Provider Nurse Practitioner Adult Health
DX: Z12.2 Encounter for screening for malignant neoplasm of respiratory organs (principal); I65.23 Occlusion and stenosis of bilateral carotid arteries; R09.89 Other specified symptoms and signs involving the circulatory and respiratory systems; Z87.891 Personal history of nicotine dependence
CPT/HCPCS: 71271; 93880

== ENCOUNTER 2023-06-15 13:34 | Outpatient (CLI) | payer MEDICARE, SELFPAY ==
[2023-06-15 20:46] LABS: Appearance Urine Clear (Clear); Bilirubin Urine Negative (Negative); Blood Urine Negative (Negative); Color Urine Yellow (Yellow); Glucose Urine UA Negative (Negative); Ketones Urine Negative (Negative); Leukocyte Esterase Ur Negative LEU/UL (Negative); Nitrate Urine Negative (Negative); Protein Urine Negative (Negative); Specific Grav Ur 1.009 (1.001-1.035); Urobilinogen Urine 0.2 mg/dL (<2.0); pH Urine 5.5 (5.0-9.0)
[2023-06-15 20:55] LABS: Add Urine Microscopic? NO
[2023-06-15 20:57] LABS: Hematocrit 52.4 % (37.0-47.0); Hemoglobin 15.9 g/dL (12.0-15.0); Mean Corpuscular HGB Conc 30.3 g/dl (32-36); Mean Corpuscular Hemoglobin 29.1 pg (26-34); Mean Corpuscular Volume 95.8 fl (80-100); Platelet Count Result 303 k/mm3 (150-375); Red Blood Count 5.47 M/mm3 (4.2-5.4); Red Cell Distribution Width 14.6 % (11.5-14.5); White Blood Count 10.1 K/mm3 (4.5-10.0)
[2023-06-15 21:00] LABS: Alanine Aminotransferase 24 U/L (6-35); Albumin Level 5.2 g/dL (3.5-5.1); Alkaline Phosphatase 137 U/L (38-126); Anion Gap 8 mmol/L (4-12); Aspartate Amino Transferase 64 U/L (14-36); Bilirubin,Total 0.7 mg/dL (0.2-1.3); Blood Urea Nitrogen 16 mg/dL (7-17); Calcium 11.8 mg/dL (8.4-10.2); Carbon Dioxide 26 mmol/L (22-30); Chloride 105 mmol/L (98-107); Cholesterol 230 mg/dL (0-200); Estimated Glomerular Filt Rate 48; Glucose 110 mg/dL (65-110); HDL Direct 68 mg/dL; Potassium 4.5 mmol/L (3.4-5.0); Sodium 139 mmol/L (137-145); Triglycerides 151 mg/dL (<150)
[2023-06-15 21:11] LABS: LDL Cholesterol Direct 119 mg/dL
[2023-06-15 21:16] LABS: Vitamin D 25 Hydroxy 70.7 ng/mL
[2023-06-15 22:04] LABS: Folic Acid 6.7 ng/mL (2.76->20)
== END 2023-06-15 13:35 | disposition home or self-care (01) ==
PROVIDERS: PCP Nurse Practitioner Adult Health; Visit Provider Nurse Practitioner Adult Health
DX: E55.9 Vitamin D deficiency, unspecified (principal); E53.8 Deficiency of other specified B group vitamins; E78.2 Mixed hyperlipidemia; R53.83 Other fatigue
CPT/HCPCS: 36415; 80053; 80061; 81003; 82306; 82607; 82746; 84443; 85027

== ENCOUNTER 2023-06-22 08:54 | Outpatient (CLI) | payer MEDICARE, SELFPAY ==
--- NOTE | ~2023-06-22 | MM_ITS ---
EXAMINATION: MM screening nery BI w yosi HISTORY: Screening mammogram TECHNIQUE: Craniocaudal and mediolateral oblique 3-D tomosynthesis images were obtained and synthetic 2-D images were generated. CAD analysis was submitted and interpreted. COMPARISON: 06/18/2015 bilateral screening mammogram BREAST PARENCHYMAL COMPOSITION: There are scattered areas of fibroglandular density. FINDINGS: There is no evidence of suspicious mass, calcification, or architectural distortion to sugg est malignancy in either breast. There has been no suspicious interval change. IMPRESSION: 1. No mammographic evidence of malignancy. 2. Recommend routine screening mammography in one year. BI-RADS Category 1: Negative Reviewed, dictated and finalized at location [facility].
--- NOTE | ~2023-06-22 | DEXA_ITS ---
Bone Density Report Name: BERNICE CARRIZALES Age: 77 Sex: Female Ethnicity: White Date of : 1945 Indication: postmenopausal; screening for osteoporosis; prior fracture; Referring Provider: SURINDER OJEDA Study: Bone densitometry was performed. Exam Date: June 22, 2023 Accession number: [id number] Bone Density: Region BMD T-score Z-score Classification AP Spine(L1, L2, L3) 0.790 -2.1 0.3 Osteopenia Femoral Neck (Right) 0.574 -2.5 -0.4 Osteoporosis Total Hip (Right) 0.724 -1.8 0.0 Osteopenia World Health Organization criteria for BMD impression classify patients as: Normal (T-score at or above -1.0), Osteopenia (T-score between -1.0 and -2.5), or Osteoporosis (T-score at or below -2.5). 10-year Fracture Risk: FRAX not reported because: Some T-score for Spine Total or Hip Total or Femoral Neck at or below -2.5 Prior hip or vertebral fracture Clinical Information Provided by Patient: Have had a previous hip or vertebral fracture Has had a low trauma fracture Smokes Has the following medical conditions: COPD Patient maximum height was 63.5 Menopause Age: 55 No regular weight bearing exercise Drinks caffeinated beverages Onset of menses at age 15 Number of children 1 Impression: The patient has established osteoporosis, based on the Right Femoral Neck T-score and the existence of a prior fracture. The patient has risk factors, including: smoking, previous fracture. Discussion: HIGH RISK OF FRACTURE. BONE DENSITY IS UNDESIRABLY LOW AT ONE OR MORE SKELETAL SITES, CONSISTENT WITH POSTMENOPAUSAL OSTEOPOROSIS. This patient's lowest T-score, in a patient who has previously fractured, meets the World Health Organization's (WHO) criteria for severe osteoporosis. In untreated patients, the risk of osteoporotic fracture increases approximately two-fold for each 1.0 SD decrease in T-score. Low bone density is not the only risk factor for fracture; also consider factors such as patient's age, frailty or poor health, risk of falling, risk of injury, previous osteoporotic fracture, family history of osteoporosis, cigarette smoking, low body weight, etc. Not everyone with low bone mineral density has osteoporosis; osteomalacia and other metabolic bone disorders should also be considered. Patients who have osteoporosis should be evaluated for specific diseases and conditions (secondary causes) that may cause or contribute to bone loss. The [place] [employer] of [employer] Endocrinologists (AACE) and National Osteoporosis Foundation (NOF) recommend pharmacologic intervention for all postmenopausal women with a previous hip or vertebral fracture and a T-score in this range. The patient should follow a healthful lifestyle (good nutrition with adequate calcium and vitamin D, and appropriate weight-bearing exercise). Follow-Up: Consider a repeat BMD and Vertebral Fra
== END 2023-06-22 08:55 | disposition home or self-care (01) ==
LOC: ANHIMG 09:00
PROVIDERS: PCP Nurse Practitioner Adult Health; Visit Provider Family Medicine
DX: Z12.31 Encounter for screening mammogram for malignant neoplasm of breast (principal); M81.0 Age-related osteoporosis without current pathological fracture; E55.9 Vitamin D deficiency, unspecified; E78.2 Mixed hyperlipidemia; J43.9 Emphysema, unspecified; J44.9 Chronic obstructive pulmonary disease, unspecified
CPT/HCPCS: 77063; 77067; 77080

== ENCOUNTER 2023-06-27 09:59 | Outpatient (CLI) | payer MEDICARE, SELFPAY ==
[2023-06-27 19:52] LABS: Hematocrit 47.1 % (37.0-47.0); Hemoglobin 14.4 g/dL (12.0-15.0); Mean Corpuscular HGB Conc 30.6 g/dl (32-36); Mean Corpuscular Hemoglobin 29.3 pg (26-34); Mean Corpuscular Volume 95.7 fl (80-100); Mean Platelet Volume 12.1 fl (7.4-10.4); Platelet Count Result 274 k/mm3 (150-375); Red Blood Count 4.92 M/mm3 (4.2-5.4); Red Cell Distribution Width 14.8 % (11.5-14.5)
[2023-06-27 19:54] LABS: Anion Gap 10 mmol/L (4-12); Blood Urea Nitrogen 10 mg/dL (7-17); Calcium 10.6 mg/dL (8.4-10.2); Carbon Dioxide 22 mmol/L (22-30); Chloride 105 mmol/L (98-107); Estimated Glomerular Filt Rate 48; Glucose 103 mg/dL (65-110); Potassium 4.7 mmol/L (3.4-5.0); Sodium 137 mmol/L (137-145)
== END 2023-06-27 10:00 | disposition home or self-care (01) ==
PROVIDERS: PCP Nurse Practitioner Adult Health; Visit Provider Nurse Practitioner Adult Health
DX: E86.0 Dehydration (principal)
CPT/HCPCS: 36415; 80048; 85027

== ENCOUNTER 2023-07-07 15:23 | Outpatient (CLI) | payer MEDICARE, SELFPAY ==
--- NOTE | 2023-07-07 15:31 | ECHO_ITS ---
Patient Info Name: Anay Summers Age: 77 years : 1945 Gender: Female Ht: 63 in Wt: 130 lbs BSA: 1.63 m2 HR: 98 bpm BP: 126 / 81 mmHg Technical Quality: Fair Exam Date: 07/07/2023 3:38 PM Exam Location: Echo Lab Patient Status: Outpatient Admit Date: 07/07/2023 Staff Ordering Physician: Moise Calvillo DO Telecommunications Repairer: Xin Mathew RDCS Attending Provider: Moise Calvillo DO Referring Physician: Rajinder JENKINS; Exam Type: CA echo doppler color flow Study Info Indications R06.09 - Other forms of dyspnea Complete two-dimensional, color flow and Doppler transthoracic echocardiogram is performed. Summary 1. Complete two-dimensional, color flow and Doppler transthoracic echocardiogram is performed. 2. Left ventricular chamber dimension is normal. 3. Left ventricular systolic function is normal, estimated at 65-70%. 4. The left ventricular diastolic function is grade I diastolic dysfunction. 5. E/e' 11 is mildly elevated. 6. There is mild aortic valve sclerosis. 7. The mitral valve has mildly calcified annulus. 8. There is trace mitral valve regurgitation. 9. There is trace tricuspid valve regurgitation. 10. No pulmonary hypertension, estimated pulmonary arterial systolic pressure is 30 mmHg. Left Ventricle E/e' 11 is mildly elevated. Left ventricular chamber dimension is normal. Left ventricular systolic function is normal, estimated at 65-70%. The left ventricular diastolic function is grade I diastolic dysfunction. Right Ventricle Right ventricular chamber dimension is normal. Right ventricular systolic function is normal. Left Atria Left atrial chamber dimension is normal. Right Atria Right atrial chamber dimension is normal. Aortic Valve The aortic valve is trileaflet. There is mild aortic valve sclerosis. There is no aortic valve stenosis. There is no aortic valve regurgitation. Pulmonic Valve There is no pulmonic regurgitation. Mitral Valve The mitral valve has mildly calcified annulus. There is no mitral valve stenosis. There is trace mitral valve regurgitation. Tricuspid Valve There is trace tricuspid valve regurgitation. No pulmonary hypertension, estimated pulmonary arterial systolic pressure is 30 mmHg. Pericardium/Pleural There is no pericardial effusion. Inferior Vena Cava Normal inferior vena cava with >50% collapse upon inspiration consistent with normal right atrial pressure, 5 mmHg. Aorta The aortic root size at the sinus of Valsalva is normal. Left Ventricular Outflow Tract Name Value Normal LVOT 2D LVOT Diameter 1.9 cm LVOT Doppler LVOT Peak Gradient 7 mmHg LVOT Mean Gradient 4 mmHg LVOT VTI 24 cm LVOT VTI/AV VTI Ratio 1.1 LVOT Stroke Volume 65 ml LVOT CO 5.8 l/min LVOT CI 3.6 l/min/m2 Pulmonic Valve Name Value Normal RVOT Doppler
== END 2023-07-07 15:24 | disposition home or self-care (01) ==
PROVIDERS: PCP Family Medicine; Visit Provider Internal Medicine Cardiovascular Disease
DX: R06.09 Other forms of dyspnea (principal); I08.0 Rheumatic disorders of both mitral and aortic valves
CPT/HCPCS: 93306

== ENCOUNTER 2023-12-22 09:55 | Outpatient (CLI) | payer MEDICARE, SELFPAY ==
[2023-12-22 19:26] LABS: Basophils Absolute Auto 0.1 K/mm3 (0.0-0.1); Eosinophils Percent Auto 12.7 % (0-4.4); Hematocrit 46.7 % (37.0-47.0); Hemoglobin 14.5 g/dL (12.0-15.0); Immature Granulocyte Absolute 0.02 K/mm3 (0.00-0.031); Immature Granulocyte Percent A 0.2 % (0-0.5); Lymphocytes Absolute Auto 2.04 K/mm3 (0.9-3.2); Lymphocytes Percent Auto 24.9 % (18.3-44.2); Mean Corpuscular Hemoglobin 29.7 pg (26-34); Mean Corpuscular Volume 95.5 fl (80-100); Mean Platelet Volume 11.9 fl (7.4-10.4); Monocytes Absolute Auto 0.7 K/mm3 (0.1-0.6); Monocytes Percent Auto 8.3 % (2.6-8.5); Neutrophils Absolute Auto 4.3 K/mm3 (1.3-6.7); Neutrophils Percent Auto 52.9 % (45.5-73.1); Platelet Count Result 278 k/mm3 (150-375); Red Blood Count 4.89 M/mm3 (4.2-5.4); Red Cell Distribution Width 14.3 % (11.5-14.5); White Blood Count 8.2 K/mm3 (4.5-10.0)
[2023-12-22 20:37] LABS: Alanine Aminotransferase 18 U/L (6-35); Albumin Level 4.5 g/dL (3.5-5.1); Alkaline Phosphatase 114 U/L (38-126); Anion Gap 9 mmol/L (4-12); Aspartate Amino Transferase 57 U/L (14-36); Bilirubin,Total 0.6 mg/dL (0.2-1.3); Blood Urea Nitrogen 11 mg/dL (7-17); Calcium 10.7 mg/dL (8.4-10.2); Carbon Dioxide 22 mmol/L (22-30); Chloride 104 mmol/L (98-107); Cholesterol 239 mg/dL (0-200); Estimated Glomerular Filt Rate 54; Glucose 108 mg/dL (65-110); HDL Direct 58 mg/dL; LDL Cholesterol Direct 146 mg/dL; Potassium 4.2 mmol/L (3.4-5.0); Sodium 135 mmol/L (137-145); Triglycerides 147 mg/dL (<150)
[2023-12-22 21:23] LABS: Vitamin D 25 Hydroxy 40.8 ng/mL
== END 2023-12-22 09:56 | disposition home or self-care (01) ==
PROVIDERS: PCP Nurse Practitioner Adult Health; Visit Provider Nurse Practitioner Adult Health
DX: E78.5 Hyperlipidemia, unspecified (principal); E55.9 Vitamin D deficiency, unspecified; E53.8 Deficiency of other specified B group vitamins
CPT/HCPCS: 36415; 80053; 80061; 82306; 82607; 85025

== ENCOUNTER 2024-06-21 13:48 | Outpatient (CLI) | payer MEDICARE, SELFPAY ==
--- NOTE | ~2024-06-21 | XR_ITS ---
XR hip RT min 2V 06/21/2024 14:04 Indication: Right hip pain Procedure: 2 views right hip Comparison: No prior studies for comparison. Findings: There is severe osteoarthritis of the right hip. No acute fracture or traumatic malalignmen t. There is coarse calcifications in the pelvis paracentral to the right, consistent with uterine fib roid changes. Impression: 1: Severe osteoarthritis of the right hip. Reviewed, dictated and finalized at location A. Impression: 1: Severe osteoarthritis of the right hip.
--- OUTSIDE RECORDS SUMMARY | 2024-06-21 13:53 | XMS_ITS | Referral Summary ---
Author Organization [facility] [place] [address] Address [address] [place] [address] Care Team Providers Care Family Consumer Science Fcs Teacher Name Role Phone Emerson Du DO Primary Care Provider [phone] [phone] Allergies No known active allergies Medications ezetimibe-simva statin (VYTORIN) 10-20 mg per tablet Take 1 tablet by mouth nightly 07/11/2020 Active montelukast (SINGULAIR) 10 mg tablet 07/11/2020 Active vit D3-vit B-yqraiaole-yex s [phone] rolj-ngy-ym-mg tablet Take by mouth Active amoxicillin (AMOXIL) 875 mg tablet Take 875 mg by mouth 2 (two) times a day Active cyanocobalamin (Vitamin B-12) 1,000 mcg tabletIndicatio ns:Prevention of Vitamin B12 Deficiency Take 1,000 mcg by mouth daily Active Active Problems Problem Noted Date Diagnosed Date Mixed hyperlipidemia 08/04/2020 Coronary artery calcification seen on CAT scan 0 07/21/2020 Tobacco abuse 07/21/2020 Dizziness 07/21/2020 SANDS (dyspnea on exertion) 07/21/2020 Social History Tobacco Use Types Packs/Day Years Used Date Smoking Tobacco: Every Day Cigarettes Smokeless Tobacco: Never Personal Safety Answer Date Recorded Getting School Help Needed Not on file 04/09 Comments Unknown Sex and Gender Information Value Date Recorded Sex Assigned at Not on file Legal Sex Female 3:22 PM CDT Gender Identity Not on file Sexual Orientation Not on file Last Filed Vital Signs Vital Sign Reading Time Taken Comments Blood Pressure 124/74 07/21/2020 12:21 PM CDT Pulse 90 07/21/2020 12:21 PM CDT Temperature - - Respiratory Rate - - Oxygen Saturation 98% 07/21/2020 12:21 PM CDT Inhaled Oxygen Concentration - - Weight 56.7 kg (125 lb 1.6 oz) 07/21/2020 12:21 PM CDT Height 160 cm (5' 3 ) 07/21/2020 12:21 PM CDT Body Mass Index 22.16 07/21/2020 12:21 PM CDT Plan of Treatment Not on file Insurance [facility] Address: [address] [address] Care Teams Family Consumer Science Fcs Teacher Relationship Specialty Start Date End Date Emerson Du DO PCP - General Family Medicine 07/04/20
--- OUTSIDE RECORDS SUMMARY | 2024-06-21 13:53 | XMS_ITS | Clinical Summary ---
Author Organization 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 Gender Identity Not on file Sexual Orientation Not on file Plan of Treatment Health Maintenance Due Date Last Done Comments DEXA Bone Density 1945 Hepatitis C Virus (HCV) Screening 1945 TdaP Immunization 1945 Colonoscopy 10/28/1992 Colorectal Cancer Screening 10/28/1992 Cologuard 10/28/1997 Immunochemical Fecal Occult Blood 10/28/1997 Pneumococcal Immunization (5 0+ years) (1 of 1 - PCV) 10/28/1997 Zoster Immunization (1 of 2) 10/28/1997 Respiratory Syncytial Virus (RSV) Immunization (Adult) (1 - 1-dose 75+ series) 10/28/2022 Influenza Immunization (#1) 2023 SARS-COV-2 Immunization ( - 2023- season) 2023 Hepatitis B Immunization Aged Out No longer eligible based on patient's age to complete this topic Meningococcal Immunization (ACWY) Aged Out No longer eligible based on patient's age to complete this topic Rotavirus Immunization Aged Out No lo nger eligible based on patient's age to complete this topic
--- OUTSIDE RECORDS SUMMARY | 2024-06-21 13:54 | XMS_ITS | Clinical Summary ---
Author Organization [facility] [place] [address] Address [address] [place] [address] Care Team Providers Care Head Strength And Conditioning Coach Name Role Phone Emerson Du DO Primary Care Provider [phone] [phone] Allergies No known active allergies Medications ezetimibe-simva statin (VYTORIN) 10-20 mg per tablet Take 1 tablet by mouth nightly 07/11/2020 Active montelukast (SINGULAIR) 10 mg tablet 07/11/2020 Active vit D3-vit J-pcrgmpxyp-ffh s [phone] xana-mrt-zj-mg tablet Take by mouth Active amoxicillin (AMOXIL) [...] Dizziness 07/21/2020 SANDS (dyspnea on exertion) 07/21/2020 Surgical History Surgery Date Site/Laterality Comments NO PAST SURGERIES Medical History Medical History Date Comments Hyperlipidemia Cataract COPD (chronic obstructive pulmonary disease) (HC C) Family History Medical History Relation Name Comments Stroke Father Heart disease Mother Relation Name Status Comments Father (Age 54) Mother (Age 83) Social History Tobacco Use Types Packs/Day Years Used Date Smoking Tobacco: Every Day Cigarettes Smokeless Tobacco: Never Personal Safety Answer Date Recorded Getting School Help Needed Not on file 04/09 Comments Unknown Sex and Gender Information Value Date Recorded Sex Assigned at Not on file Legal Sex Female 3:22 PM CDT Gender Identity Not on file Sexual Orientation Not on file Obstetrics History Last Filed Vital Signs Vital Sign Reading [...] Plan of Treatment Not on file Insurance Care Teams Head Strength And Conditioning Coach Relationship Specialty Start Date End Date Emerson Du DO PCP - General Family Medicine 07/04/20
[2024-06-21 19:17] LABS: Alanine Aminotransferase 26 U/L (6-35); Albumin Level 4.9 g/dL (3.5-5.1); Alkaline Phosphatase 138 U/L (38-126); Anion Gap 13 mmol/L (4-12); Aspartate Amino Transferase 59 U/L (14-36); Bilirubin,Total 0.8 mg/dL (0.2-1.3); Blood Urea Nitrogen 15 mg/dL (7-17); Calcium 11.1 mg/dL (8.4-10.2); Carbon Dioxide 22 mmol/L (22-30); Chloride 102 mmol/L (98-107); Cholesterol 230 mg/dL (0-200); Estimated Glomerular Filt Rate 49; Glucose 119 mg/dL (65-110); HDL Direct 79 mg/dL; Potassium 4.5 mmol/L (3.4-5.0); Sodium 137 mmol/L (137-145); Triglycerides 128 mg/dL (<150)
[2024-06-21 19:22] LABS: Basophils Absolute Auto 0.1 K/mm3 (0.0-0.1); Basophils Percent Auto 0.5 % (0.2-1.2); Eosinophils Absolute Auto 0.7 K/mm3 (0-0.3); Eosinophils Percent Auto 5.3 % (0-4.4); Hematocrit 48.7 % (37.0-47.0); Immature Granulocyte Absolute 0.05 K/mm3 (0.00-0.031); Immature Granulocyte Percent A 0.4 % (0-0.5); Lymphocytes Absolute Auto 2.33 K/mm3 (0.9-3.2); Lymphocytes Percent Auto 17.5 % (18.3-44.2); Mean Corpuscular HGB Conc 30.8 g/dl (32-36); Mean Corpuscular Hemoglobin 29.6 pg (26-34); Mean Corpuscular Volume 96.1 fl (80-100); Monocytes Absolute Auto 0.9 K/mm3 (0.1-0.6); Monocytes Percent Auto 6.4 % (2.6-8.5); Neutrophils Absolute Auto 9.3 K/mm3 (1.3-6.7); Neutrophils Percent Auto 69.9 % (45.5-73.1); Platelet Count Result 319 k/mm3 (150-375); Red Blood Count 5.07 M/mm3 (4.2-5.4); Red Cell Distribution Width 13.9 % (11.5-14.5); White Blood Count 13.3 K/mm3 (4.5-10.0)
[2024-06-21 19:29] LABS: LDL Cholesterol Direct 105 mg/dL
[2024-06-21 21:03] LABS: Vitamin D 25 Hydroxy 40.7 ng/mL
== END 2024-06-21 13:49 | disposition home or self-care (01) ==
LOC: ANHBWCLAB 13:49
PROVIDERS: PCP Nurse Practitioner Adult Health; Visit Provider Nurse Practitioner Adult Health
DX: M25.551 Pain in right hip (principal); E55.9 Vitamin D deficiency, unspecified; E78.5 Hyperlipidemia, unspecified
CPT/HCPCS: 36415; 73502; 80053; 80061; 82306; 85025

== ENCOUNTER 2024-09-05 10:26 | Outpatient (CLI) | payer MEDICARE, SELFPAY ==
--- OUTSIDE RECORDS SUMMARY | 2024-09-05 10:59 | XMS_ITS | Clinical Summary ---
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 Gender Identity Not on file Sexual Orientation Not on file Plan of Treatment Health Maintenance Due Date Last Done Comments Hepatitis C Virus (HCV) Screening 1945 TdaP Immunization 1945 Pneumococcal Immunization (5 0+ years) (1 of 1 - PCV) 10/28/1997 Zoster Immunization (1 of 2) 10/28/1997 Respiratory Syncytial Virus (RSV) Immunization (Adult) (1 - 1-dose 75+ series) 10/28/2022 SARS-COV-2 Immunization ( - 2023- season) 2023 Influenza Immunization (#1) 2024 Hepatitis B Immunization Aged Out No longer eligible based on patient's age to complete this topic Human Papillomavirus (HPV) Immunization Aged Out No longer eligible b ased on patient's age to complete this topic Meningococcal Immunization (ACWY) Aged Out No longer eligible based on patient's age to complete this topic Rotavirus Immunization Aged Out No lo nger eligible based on patient's age to complete this topic
--- OUTSIDE RECORDS SUMMARY | 2024-09-05 10:59 | XMS_ITS | Referral Summary ---
Author Organization [facility] [place] [address] Address [address] [place] [address] Care Team Providers Care Bsa/Aml Compliance Officer Name Role Phone Emerson Du DO Primary Care Provider [phone] [phone] Allergies No known active allergies Medications ezetimibe-simva statin (VYTORIN) 10-20 mg per tablet Take 1 tablet by mouth nightly 07/11/2020 Active montelukast (SINGULAIR) 10 mg tablet 07/11/2020 Active vit D3-vit D-wfgisnpmi-jnn s [phone] zemq-ovm-qs-mg tablet Take by mouth Active amoxicillin (AMOXIL) [...] 12:21 PM CDT Height 160 cm (5' 3) 07/21/2020 12:21 PM CDT Body Mass Index 22.16 07/21/2020 12:21 PM CDT Plan of Treatment Not on file Insurance Care Teams Bsa/Aml Compliance Officer Relationship Specialty Start Date End Date Emerson Du DO PCP - General Family Medicine 07/04/20
--- OUTSIDE RECORDS SUMMARY | 2024-09-05 10:59 | XMS_ITS | Clinical Summary ---
Author Organization [facility] [place] [address] Address [address] [place] [address] Care Team Providers Care Meat Puller Name Role Phone Emerson Du DO Primary Care Provider [phone] [phone] Allergies No known active allergies Medications ezetimibe-simva statin (VYTORIN) 10-20 mg per tablet Take 1 tablet by mouth nightly 07/11/2020 Active montelukast (SINGULAIR) 10 mg tablet 07/11/2020 Active vit D3-vit Y-xzgssjtau-lrx s [phone] adoh-ytk-ch-mg tablet Take by mouth Active amoxicillin (AMOXIL) [...] Plan of Treatment Not on file Insurance [facility] Address: [address] [address] Care Teams Meat Puller Relationship Specialty Start Date End Date Emerson Du DO PCP - General Family Medicine 07/04/20
[2024-09-05 19:56] LABS: Hematocrit 48.2 % (37.0-47.0); Hemoglobin 14.7 g/dL (12.0-15.0); Immature Granulocyte Percent A 0.3 % (0-0.5); Lymphocytes Absolute Auto 2.20 K/mm3 (0.9-3.2); Mean Corpuscular HGB Conc 30.5 g/dl (32-36); Mean Corpuscular Hemoglobin 29.3 pg (26-34); Mean Corpuscular Volume 96.2 fl (80-100); Nucleated Red Blood Cells Absolute Auto 0.000 K/mm3 (0.0-0.012); Nucleated Red Blood Cells Perc 0.0 % (0.0-0.2); Platelet Count Result 276 k/mm3 (150-375); Red Blood Count 5.01 M/mm3 (4.2-5.4); White Blood Count 8.8 K/mm3 (4.5-10.0)
[2024-09-05 20:07] LABS: Anion Gap 9 mmol/L (4-12); Blood Urea Nitrogen 12 mg/dL (7-17); Calcium 10.8 mg/dL (8.4-10.2); Carbon Dioxide 24 mmol/L (22-30); Chloride 105 mmol/L (98-107); Estimated Glomerular Filt Rate 52; Glucose 114 mg/dL (65-110); Potassium 4.1 mmol/L (3.4-5.0); Sodium 138 mmol/L (137-145)
== END 2024-09-05 10:27 | disposition home or self-care (01) ==
PROVIDERS: PCP Nurse Practitioner Adult Health; Visit Provider Nurse Practitioner Adult Health
DX: E83.51 Hypocalcemia (principal); D72.829 Elevated white blood cell count, unspecified
CPT/HCPCS: 36415; 80048; 85025

== ENCOUNTER 2024-10-11 10:19 | Outpatient (CLI) | payer MEDICARE, SELFPAY ==
--- OUTSIDE RECORDS SUMMARY | 2024-10-11 10:50 | XMS_ITS | Clinical Summary ---
Author Organization 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
--- OUTSIDE RECORDS SUMMARY | 2024-10-11 10:50 | XMS_ITS | Clinical Summary ---
Author Organization [facility] [place] [address] Address [address] [place] [address] Care Team Providers Care Flake Or Shred Roll Operator Name Role Phone Emerson Du DO Primary Care Provider [phone] [phone] Allergies No known active allergies Medications ezetimibe-simva statin (VYTORIN) 10-20 mg per tablet Take 1 tablet by mouth nightly 07/11/2020 Active montelukast (SINGULAIR) 10 mg tablet 07/11/2020 Active vit D3-vit L-ppuuonaht-prl s [phone] dkwg-znn-us-mg tablet Take by mouth Active amoxicillin (AMOXIL) [...] Hyperlipidemia Cataract COPD (chronic obstructive pulmonary disease) Family History Medical History Relation Name Comments [...] of Treatment Not on file Insurance [facility] Address: [address] [address] Care Teams Flake Or Shred Roll Operator Relationship Specialty Start Date End Date Emerson Du DO PCP - General Family Medicine 07/04/20
== END 2024-10-11 10:20 | disposition home or self-care (01) ==
LOC: ANHBWCLAB 10:20
PROVIDERS: PCP Nurse Practitioner Adult Health; Visit Provider Nurse Practitioner Adult Health
DX: E83.52 Hypercalcemia (principal)
CPT/HCPCS: 36415; 82306

== ENCOUNTER 2024-12-25 14:21 | Outpatient (CLI) | payer MEDICARE, SELFPAY ==
[2024-12-25 18:49] LABS: Alanine Aminotransferase 21 U/L (6-35); Albumin Level 4.6 g/dL (3.5-5.1); Alkaline Phosphatase 128 U/L (38-126); Anion Gap 7 mmol/L (4-12); Aspartate Amino Transferase 61 U/L (14-36); Bilirubin,Total 0.7 mg/dL (0.2-1.3); Blood Urea Nitrogen 12 mg/dL (7-17); Calcium 10.7 mg/dL (8.4-10.2); Carbon Dioxide 26 mmol/L (22-30); Chloride 104 mmol/L (98-107); Cholesterol 236 mg/dL (0-200); Estimated Glomerular Filt Rate 51; Glucose 96 mg/dL (65-110); HDL Direct 69 mg/dL; Potassium 4.7 mmol/L (3.4-5.0); Sodium 137 mmol/L (137-145); Total Protein 8.8 g/dL (6.3-8.2); Triglycerides 129 mg/dL (<150)
--- OUTSIDE RECORDS SUMMARY | 2024-12-26 01:09 | XMS_ITS | Clinical Summary ---
Author Organization [facility] [place] [address] Address [address] [place] [address] Care Team Providers Care House Mover Supervisor Name Role Phone Emerson Du DO Primary Care Provider [phone] [phone] Allergies No known active allergies Medications ezetimibe-simva statin (VYTORIN) 10-20 mg per tablet Take 1 tablet by mouth nightly 07/11/2020 Active montelukast (SINGULAIR) 10 mg tablet 07/11/2020 Active vit D3-vit X-esflypgjo-hun s [phone] nklz-fot-jf-mg tablet Take by mouth Active amoxicillin (AMOXIL) [...] Treatment Not on file Insurance Care Teams House Mover Supervisor Relationship Specialty Start Date End Date Emerson Du DO PCP - General Family Medicine 07/04/20
--- OUTSIDE RECORDS SUMMARY | 2024-12-26 01:09 | XMS_ITS | Clinical Summary ---
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
== END 2024-12-25 14:22 | disposition home or self-care (01) ==
PROVIDERS: PCP Nurse Practitioner Adult Health; Visit Provider Nurse Practitioner Adult Health
DX: I25.10 Atherosclerotic heart disease of native coronary artery without angina pectoris (principal); I77.1 Stricture of artery
CPT/HCPCS: 36415; 80053; 80061